=== PATIENT | male | born 1935 | race Caucasian/White ===

== ENCOUNTER → 2017-10-26 06:07 | Outpatient (CLI) | payer MEDICARE, OTHER, SELFPAY ==
--- NOTE | 2017-10-26 10:03 | STRESSREP ---
Stress Test Report Date: 10/26/2017 Procedure: Pharmacologic stress nuclear imaging study Indications: CAD: PCI; CABG; atrial fibrillation Consent: Per the patient Procedure: The patient underwent pharmacologic (Regadenoson) evaluation with a peak heart rate of 84 bpm (60% predicted maximal heart rate) with a peak blood pressure 134/78 mmHg. The baseline ECG demonstrated atrial fibrillation. There was notation of nonspecific ST and T-wave abnormality. The peak pharmacologic ECG demonstrated continued atrial fibrillation with nonspecific ST and T-wave abnormality. There was a rare PVC during recovery. There was no report of chest discomfort during pharmacologic infusion or recovery. The examination was discontinued secondary to completion of protocol. Impression: 1. Pharmacologic (Regadenoson) evaluation 2. Peak pharmacologic ECG with continued atrial fibrillation with nonspecific ST and T-wave abnormality 3. Rare PVC during recovery 4. Nuclear images pending Myocardial perfusion imaging study: Technique: The patient was injected with 10.6 mCi of technetium 99m Cardiolite and subsequently rest SPECT Cardiolite nuclear imaging was obtained in the horizontal long, vertical long, and short axis views. The patient underwent pharmacologic (Regadenoson) evaluation with a peak heart rate of 84 bpm (60% predicted maximal heart rate) with a peak blood pressure 134/78 mmHg. the patient was injected with 36.0 mCi of technetium 99m Cardiolite and subsequently stress SPECT Cardiolite nuclear imaging was obtained in the horizontal long, vertical long, and short axis views. A gated Cardiolite study at peak stress was obtained. Interpretation: Rest and stress SPECT Cardiolite nuclear imaging status post realignment, normalization, and attenuation correction, appears to demonstrate relative uniform tracer uptake and myocardial perfusion appearing within normal limits. There is end systolic thickening and brightening. The gated Cardiolite study demonstrates myocardial thickening and inward wall motion. The reported LVEF is 85%. Impression: 1. Rest and stress SPECT Cardiolite nuclear imaging demonstrate relative uniform tracer uptake and myocardial perfusion appearing within normal limits. 2. The gated Cardiolite study reports an LVEF of 85%. This note was generated with [employer] software. Every effort was made to ensure accuracy, however, computerized cage cashier mistakes may persist.
--- NOTE | 2017-10-26 10:12 | STRESSREP_ITS ---
Stress Test Report Date: 10/26/2017 Procedure: Pharmacologic stress nuclear imaging study Indications: CAD: PCI; CABG; atrial fibrillation Consent: Per the patient Procedure: The patient underwent pharmacologic (Regadenoson) evaluation with a peak heart rate of 84 bpm (60% predicted maximal heart rate) with a peak blood pressure 134 /78 mmHg. The baseline ECG demonstrated atrial fibrillation. There was notation of nonspecific ST and T-wave abnormality. The peak pharmacologic ECG demonstrated continued atrial fibrillation with nonspecific ST and T-wave abnormality. There was a rare PVC during recovery. There was no report of chest discomfort during pharmacologic infusion or recovery. The examination was discontinued secondary to completion of protocol. Impression: 1. Pharmacologic (Regadenoson) evaluation 2. Peak pharmacologic ECG with continued atrial fibrillation with nonspecific ST and T-wave abnormality 3. Rare PVC during recovery 4. Nuclear images pending Myocardial perfusion imaging study: Technique: The patient was injected with 10.6 mCi of technetium 99m Cardiolite and subsequently rest SPECT Cardiolite nuclear imaging was obtained in the horizontal long, vertical long, and short axis views. The patient underwent pharmacologic (Regadenoson) evaluation with a peak heart rate of 84 bpm (60% predicted maximal heart rate) with a peak blood pressure 134/78 mmHg. the patient was injected with 36.0 mCi of technetium 99m Cardiolite and subsequently stress SPECT Cardiolite nuclear imaging was obtained in the horizontal long, vertical long, and short axis views. A gated Cardiolite study at peak stress was obtained. Interpretation: Rest and stress SPECT Cardiolite nuclear imaging status post realignment, normalization, and attenuation correction, appears to demonstrate relative uniform tracer uptake and myocardial perfusion appearing within normal limits. There is end systolic thickening and brightening. The gated Cardiolite study demonstrates myocardial thickening and inward wall motion. The reported LVEF is 85%. Impression: 1. Rest and stress SPECT Cardiolite nuclear imaging demonstrate relative uniform tracer uptake and myocardial perfusion appearing within normal limits. 2. The gated Cardiolite study reports an LVEF of 85%. This note was generated with [employer] software. Every effort was made to ensure accuracy, however, computerized consumer banker mistakes may persist.
== END ==
PROVIDERS: Family Provider Family Medicine; PCP Family Medicine; Visit Provider Family Medicine
DX: I25.10 Atherosclerotic heart disease of native coronary artery without angina pectoris (principal); R94.31 Abnormal electrocardiogram [ECG] [EKG]; I48.91 Unspecified atrial fibrillation
CPT/HCPCS: 78452; 93017; A9500; A4216; J2785

== ENCOUNTER → 2017-11-07 15:12 | Outpatient (CLI) | payer MEDICARE, OTHER, SELFPAY ==
--- NOTE | 2017-11-07 15:18 | RAD_ITS ---
STUDY: X-RAY CHEST REASON FOR EXAM: Male, 82 years old. Cough. Pneumonia. TECHNIQUE: Frontal and lateral views of the chest. COMPARISON: None. FINDINGS: The lungs are clear and expanded. There is no demonstrated pleural abnormality. Sternal cerclage wires and vascular clips are present from a prior sternotomy and coronary artery bypass graft procedure (CABG). Normal mediastinum and tessa. Normal visualized pulmonary arteries. Normal visualized aortic arch and descending thoracic aorta. Normal visualized thoracic spine. Previous left shoulder surgery. There is no demonstrated abnormality of the visualized soft tissue structures of the upper abdomen. RAD/Chest PA and Lateral IMPRESSION: No acute chest disease.. Electronically Signed: Derrick Jorgensen MD at 14:12 EST , Service support ,
== END ==
PROVIDERS: Family Provider Family Medicine; PCP Family Medicine; Visit Provider Family Medicine
DX: R05 Cough (principal)
CPT/HCPCS: 71046

== ENCOUNTER → 2019-04-18 | Outpatient (CLI) | payer MEDICARE, OTHER, SELFPAY | END | disposition home or self-care (01) | LOC: SL 20:08 | PROVIDERS: Family Provider Family Medicine; PCP Family Medicine; Referring Provider Family Medicine; Visit Provider Family Medicine | DX: G47.30 Sleep apnea, unspecified (principal); R06.83 Snoring | CPT/HCPCS: 95811 ==

== ENCOUNTER → 2019-06-13 10:34 | Outpatient (CLI) | payer MEDICARE, OTHER, SELFPAY ==
[2019-05-01 14:39] VITALS: BMI 27.6
--- NOTE | 2019-05-16 21:33 | HP.PCM_ITS ---
History and Physical Date of Admission: 05/17/19 ALLERGIES acetaminophen [From Percocet] acetazolamide hydrocodone [From Vicodin] oxycodone [From Percocet] prednisone Sulfa (Sulfonamide Antibiotics) MEDICATIONS allopurinol ascorbic acid (vitamin C) aspirin brimonidine 0.1 % eye drops carboxymethylcellulose 0.5 %-glycerin 0.9 % eye drops cholecalciferol (vitamin D3) cyanocobalamin (vitamin B-12) dorzolamide 2 %-timolol 0.5 % (PF) eye drops doxycycline hyclate latanoprostene bunod 0.024 % eye drops lisinopril olopatadine 0.2 % eye drops omega-3 360 ye-nyy-ary-fish oil prednisolone acetate propranolol simvastatin tramadol triamcinolone acetonide triamterene warfarin PAST MEDICAL HISTORY Arthritis (Acute) Atrial fibrillation (Acute) Back problem (Acute) Cataracts, bilateral (Acute) Glaucoma (Acute) Gout (Acute) Hearing problem (Acute) Heart disease (Acute) High cholesterol (Acute) History of blood transfusion (Acute) Neuropathy (Acute) Seasonal allergies (Acute) Vision problems (Acute) High blood pressure (Chronic) PAST SURGICAL HISTORY Glaucoma, open angle (Acute) History of colonoscopy (Acute) History of excision of epidermal inclusion cyst (Acute) History of heart artery stent (Acute) History of hemorrhoidectomy (Acute) History of phacoemulsification of cataract of both eyes with intraocular lens implantation (Acute) History of right knee surgery (Acute) History of rotator cuff surgery (Acute) History of tonsillectomy (Acute) History of vasectomy (Acute) Hx of CABG (Acute) Pilonidal cyst (Acute) FAMILY HISTORY Daughter - Depression, Suicide Sister - Depression Mother - Heart disease, Suicide Father - CVA (cerebral vascular accident) SOCIAL HISTORY Smoking Status: Former smoker alcohol intake: current substance use type: does not use HISTORY OF PRESENT ILLNESS 83 year old man presents for evaluation for TBSE. He has concerns about a lesion on his right lateral forehead by the hairline that has increased in size over the last few months and has developed a cutaneous horn component. He has had the lesion removed a couple of times in the past and it has recurred. He states it was biopsied once and it was an actinic keratosis. He also has a concern about a lesion on his left temporal scalp which had increased in size over the last several months and had become more raised in configuration with some crusting. However recently he has noticed the lesion has flattened out as the crusting has seemed to resolve. He denies trauma. He denies fever. He presents at this time for further evaluation and treatment. REVIEW OF SYSTEMS General - Denies fever, fatigue, and weight loss. Eyes - Denies cataracts. Has glaucoma. ENT - Denies nasal congestion and sore throat. Endocrine - Denies excessive thirst and urination. Skin - Denies skin cancer. Has recurrent actinic keratosis right lateral forehead by hairline and a lesion left temporal scalp that had some crusting recently but none at present. Musculoskeletal - Denies joint pain, joint stiffness, weakness of muscles and joints, back pain. Denies arthritis. Neuro - Denies headaches. Cardiovascular - Denies chest pain, fatigue, and shortness of breath with exertion. Psych - Denies anxiety and depression. Respiratory - Denies chronic cough and shortness of breath. Patient is a former smoker. Gastrointestinal - Denies nausea, vomiting, diarrhea, and constipation. Hematologic - Denies abnormal bruising and bleeding. Genitourinary - Denies hematuria and urinary frequency. PHYSICAL EXAMINATION General - Alert and Oriented. HEENT - PERRL. EOMI. Throat is clear. On the right lateral forehead by the hairline is a lesion that measures 5 mm. Has a cutaneous horn component. Has irregular borders. No ulceration. Lesion is nontender.. Has been biopsied in the past and shown to be an actinic keratosis. On his left temporal scalp is a lesion that measures 5 mm. Has regular borders. Slightly pigmented which is uniform. No ulceration. Lesion is nontender. Looks like a benign keratosis. Neck - Supple and nontender. No cervical adenopathy. No suspicious lesions noted. Lungs - Clear to auscultation. Heart - Regular rate and rhythm. Abdomen - Soft and nondistended. Extremities - FROM. No axillary adenopathy. Radial pulses are palpable. No suspicious lesions noted. Neuro - CN II-XII grossly intact. Psych - Normal mood and affect. ASSESSMENT 1. 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 2. 5 mm slightly pigmented lesion left temporal scalp, clinically consistent with a benign keratosis. 3. Former smoker. PLAN Recommend excision of this recurrent cutaneous horn actinic keratosis right lateral forehead by hairline. Will send the lesion to Pathology for analysis to rule out carcinoma. It will be a full thickness excision because it has a cutaneous horn component. If carcinoma is present, then further excision will be necessary with skin graft or skin flap reconstruction. The lesion left temporal scalp clinically looks like a benign keratosis and can be observed at this time. They are going to [place] at the end of May for 9 months. They will be returning in Jan, 2020. He was instructed to have the lesion left temporal scalp checked in [place] if any changes occur for evaluation for excision. Kavon frazier I can re-evaluate the lesion when he returns in January. Surgery for the right lateral forehead by hairline lesion can be done under local anesthesia and IV sedation on an outpatient basis. Patient was informed of the risks and complications of the procedure including alternatives to surgery. These were discussed with the patient personally. Patient voices understanding and wishes to proceed. Some of the risks and complications were included in a form from the [place] [employer]. Will schedule the surgery in early May so I have a chance to monitor the incisions postop for one or two visits prior to leaving for [place] at the end of May.
[2019-05-17 12:10] VITALS: BP 143/81; PULSE 69; RESP 16; TEMP 36.5; O2SAT 99; BMI 26.4
[2019-05-17] MEDS: Lactated Ringers 1,000 ML 100 ML IV (12:42)
--- NOTE | 2019-05-17 14:18 | PCM.PN.BLA ---
Progress Note Patient was scheduled to have a cutaneous horn lesion excised from his right lateral forehead by kevin today. He had an EKG this morning and it showed some anterior ischemia changes. Patient is asymptomatic at this time. We obtained a previous EKG from [place] earlier this year in December. It showed some anterior ischemia changes but not as much. He had seen his Cig[facility] Bander in [place] in December. His office note did not recommend any testing at that time as he appeared stable. He thought the EKG was stable. His last stress test was in October,. His last ECHO was in 2016. The office note also stated some carotid disease based on an ultrasound in 2013. With his history of atrial fibrillation which is being treated with Coumadin and with his history of heart disease and CABG, Anesthesia felt it was prudent to cancel the elective surgery today. The surgery still needs to be done but not urgently. It can wait a couple of months until he is seen and evaluated by his [facility]ig[facility]. Patient is planning on returning to [place] in a month and will followup with his [facility] at that time. He will tell him that he needs surgery to remove this cutaneous horn lesion on his forehead, and then let the [facility] decide if any preop testing needs to be done. At that point the patient will decide if he wants the surgery done in [place] or if he wants to wait until his return to [place] in January or February. I told him that would be ok as long as the lesion does not dramatically increase in size in which case he would need to have it removed in [place]. He voices understanding and is in agreement with the plan.
[2019-05-17 14:26] LABS: Prothrombin Time Fingerstick 15.4 SEC (11.9-14.4)
== END ==
LOC: AC 05-17 15:02 → SDC 10:34
PROVIDERS: Family Provider Family Medicine; PCP Family Medicine; Referring Provider Surgery; Visit Provider Surgery
DX: L57.0 Actinic keratosis (principal); Z53.09 Procedure and treatment not carried out because of other contraindication; L98.9 Disorder of the skin and subcutaneous tissue, unspecified; I48.91 Unspecified atrial fibrillation; I10 Essential (primary) hypertension; E78.00 Pure hypercholesterolemia, unspecified; M10.9 Gout, unspecified; Z79.01 Long term (current) use of anticoagulants; Z79.82 Long term (current) use of aspirin; Z79.899 Other long term (current) drug therapy; Z87.891 Personal history of nicotine dependence; Z95.1 Presence of aortocoronary bypass graft
CPT/HCPCS: 36416; 85610; 93005; J7120; J2405

== ENCOUNTER 2020-04-15 10:22 | Outpatient (RCR) | payer MEDICARE, OTHER, SELFPAY ==
[2020-04-15 09:43] VITALS: BMI 27.1
[2020-04-15 12:36] LABS: Absolute Lymphocyte Count 1.35 X10^3/uL (0.83-4.51); Absolute Neutrophil Count 4.6 X10^3/uL (2.0-7.7); Basophil# 0.04 X10^3/uL; Basophil% 0.6 % (0-1); Eosinophil# 0.26 X10^3/uL; Eosinophils% 3.8 % (0-5); Hematocrit 49.7 % (40-54); Hemoglobin 16.3 g/dL (13.0-16.5); Lymphocyte # 1.35 X10^3/ul (4.0); Lymphocyte % 19.6 % (19-41); Mean Corp Hgb Conc 32.8 g/dL (32-36); Mean Corpuscular Hgb 32.2 pg (27.0-32.0); Mean Corpuscular Volume 98.2 fL (80-94); Mean Platelet Vol. 10.8 fl (6.2-12.0); Monocyte# 0.61 X10^3/uL; Monocyte% 8.8 % (0-10); NRBC Flagged by Analyzer 0 % (0-5); Neutrophil # 4.63 X10^3/uL (2.7-7.7); Neutrophil % 67.1 % (47-70); Platelet Count 104 K/mm3 (150-450); RBC Distribution Width CV 13.8 % (11.6-14.6); RBC Distribution Width SD 49.1 fl (35.1-43.9); Red Blood Count 5.06 M/mm3 (4.6-6.2); White Blood Count 6.9 K/mm3 (4.4-11.0)
[2020-04-15 12:55] LABS: International Normalized Ratio 2.4; Prothrombin Time (Protime)PT. 25.8 SECONDS (11.7-14.9)
[2020-04-15 13:02] LABS: Anion Gap 5 (5-15); BUN 25 mg/dL (7-18); BUN/Creat Ratio 19.7 RATIO (10-20); Chloride 110 mmol/L (98-107); Creatinine, Serum 1.27 mg/dL (0.70-1.30); EST Glomerular Filtration Rate 58 mL/min (>60); Est Glom Filt Rate - Afr Amer 70 mL/min (>60); Glucose 107 mg/dL (74-106); Sodium Level 140 mmol/L (136-145)
== END 2020-04-17 23:59 ==
LOC: BIMLAB 10:22
PROVIDERS: PCP Internal Medicine; Referring Provider Internal Medicine; Visit Provider Internal Medicine
DX: I48.91 Unspecified atrial fibrillation (principal)
CPT/HCPCS: 36415; 80048; 85025; 85610

== ENCOUNTER 2020-05-14 14:12 | Outpatient (RCR) | payer MEDICARE, OTHER, SELFPAY ==
[2020-05-14 15:54] LABS: International Normalized Ratio 1.4; Prothrombin Time (Protime)PT. 16.8 SECONDS (11.7-14.9)
== END 2020-05-18 23:59 ==
LOC: BIMLAB 14:12
PROVIDERS: PCP Internal Medicine; Referring Provider Internal Medicine; Visit Provider Internal Medicine
DX: I48.91 Unspecified atrial fibrillation (principal)
CPT/HCPCS: 36415; 85610

== ENCOUNTER 2020-05-29 10:27 | Outpatient (RCR) | payer MEDICARE, OTHER, SELFPAY ==
[2020-05-29 13:41] LABS: Prothrombin Time (Protime)PT. 22.2 SECONDS (11.7-14.9)
== END 2020-06-17 23:59 ==
LOC: BIMLAB 10:27
PROVIDERS: PCP Internal Medicine; Referring Provider Internal Medicine; Visit Provider Internal Medicine
DX: I48.91 Unspecified atrial fibrillation (principal)
CPT/HCPCS: 36415; 85610

== ENCOUNTER 2021-03-12 11:58 | Outpatient (RCR) | payer MEDICARE, OTHER, SELFPAY ==
[2020-06-03 13:09] VITALS: BMI 27.8
[2021-02-18 16:44] LABS: International Normalized Ratio 1.5; Prothrombin Time (Protime)PT. 17.4 SECONDS (11.7-14.9)
[2021-03-01 12:32] LABS: International Normalized Ratio 2.8; Prothrombin Time (Protime)PT. 28.7 SECONDS (11.7-14.9)
[2021-03-12 15:41] LABS: International Normalized Ratio 3.6; Prothrombin Time (Protime)PT. 35.4 SECONDS (11.7-14.9)
== END 2021-03-17 23:59 ==
LOC: BIMLAB 11:58
PROVIDERS: PCP Internal Medicine; Referring Provider Internal Medicine Cardiovascular Disease; Visit Provider Internal Medicine Cardiovascular Disease
DX: I48.11 Longstanding persistent atrial fibrillation (principal); Z79.01 Long term (current) use of anticoagulants
CPT/HCPCS: 36415; 85610

== ENCOUNTER 2021-04-06 09:11 | Outpatient (RCR) | payer MEDICARE, OTHER, SELFPAY ==
[2020-06-03 13:09] VITALS: BMI 27.8
[2021-03-19 12:27] LABS: International Normalized Ratio 3.3; Prothrombin Time (Protime)PT. 32.7 SECONDS (11.7-14.9)
[2021-04-06 12:46] LABS: International Normalized Ratio 2.5; Prothrombin Time (Protime)PT. 26.4 SECONDS (11.7-14.9)
== END 2021-04-17 23:59 ==
LOC: BIMLAB 09:11
PROVIDERS: PCP Internal Medicine; Referring Provider Internal Medicine Cardiovascular Disease; Visit Provider Internal Medicine Cardiovascular Disease
DX: I48.11 Longstanding persistent atrial fibrillation (principal); Z79.01 Long term (current) use of anticoagulants
CPT/HCPCS: 36415; 85610

== ENCOUNTER 2021-04-20 13:29 | Outpatient (RCR) | payer MEDICARE, OTHER, SELFPAY ==
[2021-04-14 15:35] VITALS: BMI 27.8
[2021-04-20 15:13] LABS: International Normalized Ratio 3.2; Prothrombin Time (Protime)PT. 31.9 SECONDS (11.7-14.9)
== END 2021-05-18 23:59 ==
LOC: BIMLAB 13:29
PROVIDERS: PCP Internal Medicine; Referring Provider Internal Medicine Cardiovascular Disease; Visit Provider Internal Medicine Cardiovascular Disease
DX: I48.11 Longstanding persistent atrial fibrillation (principal); Z79.01 Long term (current) use of anticoagulants
CPT/HCPCS: 36415; 85610

== ENCOUNTER → 2021-05-05 09:11 | Outpatient (CLI) | payer MEDICARE, OTHER, SELFPAY ==
[2021-04-14 15:35] VITALS: BMI 27.8
[2021-05-05 12:43] LABS: International Normalized Ratio 2.5; Prothrombin Time (Protime)PT. 26.5 SECONDS (11.7-14.9)
== END ==
PROVIDERS: Internal Medicine Cardiovascular Disease; PCP Internal Medicine; Visit Provider Internal Medicine
DX: I48.11 Longstanding persistent atrial fibrillation (principal); Z79.01 Long term (current) use of anticoagulants
CPT/HCPCS: 36415; 85610

== ENCOUNTER 2021-05-26 13:50 | Outpatient (RCR) | payer MEDICARE, OTHER, SELFPAY ==
[2021-05-19 00:35] VITALS: BMI 27.8
[2021-05-26 15:41] LABS: International Normalized Ratio 2.1; Prothrombin Time (Protime)PT. 22.7 SECONDS (11.7-14.9)
== END 2021-06-17 23:59 ==
LOC: BIMLAB 13:50
PROVIDERS: PCP Internal Medicine; Referring Provider Internal Medicine Cardiovascular Disease; Visit Provider Internal Medicine Cardiovascular Disease
DX: I48.11 Longstanding persistent atrial fibrillation (principal); Z79.01 Long term (current) use of anticoagulants
CPT/HCPCS: 36415; 85610

== ENCOUNTER 2023-03-04 11:19 | Emergency (ER) | payer MEDICARE, SELFPAY ==
[2023-03-04 11:20] VITALS: BP 117/92; PULSE 89; RESP 16; TEMP 36.7; O2SAT 96; BMI 25.7
--- NOTE | 2023-03-04 12:10 | EX.ED.DYSGE1 ---
HPI <SAMANTHA Avendaño - Last Filed: 03/04/23 17:50> History of Present Illness Chief Complaint: General Illness Narrative Narrative: Patient presenting today due to concerns that his blood glucose level was 163 this morning when he woke up around 9:30 AM. He reports that he felt shaky in his hands which prompted him to check his blood glucose level. He does not have a history of diabetes but does try to keep track of his glucose. He had similar symptoms in January when his glucose was 184. He reports that he felt a little nauseous this morning but does not have any abdominal pain and no longer feels nauseous. He denies any fever, chills, recent illness, chest pain, shortness of breath, stool changes, urinary symptoms. PMH includes CAD, CABG, history of stents, atrial fibrillation on Eliquis. PFSH <SAMANTHA Avendaño - Last Filed: 03/04/23 17:50> [facility] Medical History Arthritis Atherosclerotic heart disease of [place] coronary artery without angina pectoris Back problem Bilateral carotid artery stenosis Cataracts, bilateral Essential hypertension Former smoker Glaucoma Gout Hearing aid worn Hearing problem High triglycerides History of blood transfusion History of skin cancer Hypertrophic toenail MCC current use of anticoagulant Longstanding persistent atrial fibrillation Neuropathy Pure hypercholesterolemia Seasonal allergies Vision problems Home Medications allopurinol 300 mg tablet 150 mg PO DAILY 05/01/19 [History Last Taken Unknown] ascorbic acid (vitamin C) 1,000 mg tablet 1 g PO DAILY 05/01/19 [History Last Taken Unknown] aspirin 81 mg tablet,delayed release (Adult Low Dose Aspirin) 81 mg PO DAILY 05/01/19 [History Last Taken Unknown] cholecalciferol (vitamin D3) 50 mcg (2,000 unit) capsule 2,000 unit PO DAILY 05/01/19 [History Last Taken Unknown] lisinopril 5 mg tablet 5 mg PO DAILY 05/01/19 [History Last Taken 05/17/19 10:00] omega-3 360 iq-qkz-oyw-fish oil 1,200 mg capsule,delayed release (Fish Oil) 1 cap PO DAILY 05/01/19 [History Last Taken Unknown] triamcinolone acetonide 0.1 % topical cream 1 applic topical DAILY 05/01/19 [History Last Taken Unknown] cyanocobalamin (vitamin B-12) 1,000 mcg/mL injection solution 1,000 mcg subcut QMONTH 04/02/20 [History Last Taken Unknown] doxycycline monohydrate 100 mg capsule (Monodox) 100 mg PO DAILY 04/02/20 [History Last Taken Unknown] brimonidine 0.1 % eye drops (Alphagan P) 2 drp ophthalmic (eye) BID 04/15/20 [History Last Taken Unknown] latanoprostene bunod 0.024 % eye drops (Vyzulta) 1 drp ophthalmic (eye) QHS 04/15/20 [History Last Taken Unknown] carboxymethylcellulose 0.5 %-glycerin 0.9 % eye drops (Refresh Optive) 1 drp ophthalmic (eye) BID-QID PRN 06/03/20 [History Last Taken Unknown] dorzolamide 22.3 mg-timolol 6.8 mg/mL eye drops 1 drp ophthalmic (eye) QAM AND QPM 04/14/21 [History Last Taken Unknown] optive tears EACH EYE 02/22/23 [History Last Taken Unknown] apixaban 5 mg tablet (Eliquis) 5 mg PO BID #180 tabs 02/23/23 [Rx Last Taken Unknown] propranolol 60 mg capsule,24 hr,extended release 60 mg PO DAILY #90 caps 02/23/23 [Rx Last Taken Unknown] simvastatin 10 mg tablet 10 mg PO QHS #90 tabs 02/23/23 [Rx Last Taken Unknown] triamterene 37.5 mg-hydrochlorothiazide 25 mg tablet 0.5 tab PO DAILY #90 tabs 02/23/23 [Rx Last Taken Unknown] Allergy/AdvReac Type Severity Reaction Status Date / Time acetaminophen [From Percocet] Allergy Intermediate ALLERGY Verified 03/04/23 11:23 acetazolamide Allergy Intermediate ALLERGY Verified 03/04/23 11:23 hydrocodone [From Vicodin] Allergy Intermediate ALLERGY Verified 03/04/23 11:23 oxycodone [From Percocet] Allergy Intermediate ALLERGY Verified 03/04/23 11:23 Sulfa (Sulfonamide Allergy Intermediate ALLERGY Verified 03/04/23 11:23 Antibiotics) Family History Daughter Depression Suicide Sister Depression Mother Heart disease Suicide Father CVA (cerebral vascular accident) Surgical History Glaucoma, open angle History of colonoscopy History of coronary artery bypass surgery (~1982) History of excision of epidermal inclusion cyst History of heart artery stent (~2003) History of hemorrhoidectomy History of phacoemulsification of cataract of both eyes with intraocular lens implantation History of right knee surgery History of rotator cuff surgery History of tonsillectomy History of vasectomy Pilonidal cyst Social History Smoking Status: Former smoker alcohol intake: current alcohol intake frequency: a few times a week substance use type: does not use what type of physical activity do you participate in: none and additional details: limeted additional social history: DOES USE ASPIRIN DOES NOT USE IBUPROFEN ROS <SAMANTHA Avendaño - Last Filed: 03/04/23 17:50> ROS ED Constitutional Constitutional ED: Denies chills or fever(s) Cardiovascular Cardiovascular: Denies chest pain Respiratory/Chest Respiratory/Chest: Denies cough or dyspnea Gastrointestinal Gastrointestinal: Reports nausea; Denies abdominal pain, constipation, diarrhea, hematochezia, melena or vomiting Genitourinary Genitourinary ED: Denies dysuria, hematuria or urinary urgency Musculoskeletal Musculoskeletal: Denies arthralgias or myalgias Integumentary Denies rash Neurologic Neurologic: Denies confusion, paresthesias or weakness EXAM <SAMANTHA Avendaño - Last Filed: 03/04/23 17:50> Physical Exam Const Vital Signs: 03/04/23 11:20 03/04/23 12:30 03/04/23 15:07 Temperature 98.1 F Temperature Source Temporal Pulse Rate 89 63 Respiratory Rate 16 14 Respiratory Effort Normal Non-Labored Respiratory Pattern Normal Blood Pressure 117/92 H 118/68 Blood Pressure Mean 100 84 Pulse Ox 96 98 Oxygen Delivery Method Room Air Room Air Positive well nourished, well developed and no apparent distress General Appearance ED: well developed HEENT Reports normocephalic and head/scalp atraumatic Mouth ED: Yes moist mucous membranes normal Eyes PERRL and EOMs intact bilaterally Neck full ROM and supple Chest Wall inspection of chest normal Resp normal respiratory effort and clear to auscultation bilaterally Cardio regular rate and regular rhythm GI soft to palpation, non-tender, non-distended and no masses Back/Spine normal ROM and normal to inspection Extremity normal to inspection and full ROM Neuro oriented x3, CN's II-XII intact bilaterally, moves all extremities, no focal motor deficits and no sensory deficits noted Sensorium / Orientation: awake and alert Psych mental status grossly normal and thought process normal Skin no rashes or lesions noted and no wounds <Dr. Tj Mcguire DO - Last Filed: 03/04/23 16:41> Physical Exam Const Vital Signs: 03/04/23 11:20 03/04/23 12:30 03/04/23 15:07 Temperature 98.1 F Temperature Source Temporal Pulse Rate 89 63 Respiratory Rate 16 14 Respiratory Effort Normal Non-Labored Respiratory Pattern Normal Blood Pressure 117/92 H 118/68 Blood Pressure Mean 100 84 Pulse Ox 96 98 Oxygen Delivery Method Room Air Room Air [facility] <SAMANTHA Avendaño - Last Filed: 03/04/23 17:50> [facility] Narrative Medical decision making narrative: Patient presenting today due to concerns that he was hyperglycemic this morning when he checked his sugar fasting and it was 163. He felt shaky and also slightly nauseous and decided to come in. Basic labs obtained to assess glucose and rule out leukocytosis, anemia, electrolyte abnormality. Given his extensive heart history, troponin and EKG will be obtained to rule out ACS. Patient does have leukocytosis, I will attempt to find a source from that by obtaining a chest x-ray, UA, and CT of the abdomen pelvis given he was nauseous. UA is not for infection, chest x-ray negative for any acute findings, CT shows BPH, renal cysts but otherwise unremarkable. patient is aware that he has an enlarged prostate. He is well-appearing and in no acute distress, he is asymptomatic here. I have discussed his lab findings with him, encouraged him to follow-up with his PCP and given him return instructions. He will be discharged home in stable condition and is comfortable with plan. Lab Data Labs: Laboratory Results - last 24 hr 03/04/23 03/04/23 03/04/23 12:25 12:25 14:10 WBC 17.5 H RBC 4.31 L Hgb 13.6 Hct 41.0 MCV 95.1 H MCH 31.6 MCHC 33.2 RDW Std Deviation 50.9 H RDW Coeff of Stefany 14.6 Plt Count 88 L MPV 10.8 Immature Gran % (Auto) 0.900 Neut % (Auto) 92.3 H Lymph % (Auto) 1.5 L [place] % (Auto) 5.1 Eos % (Auto) 0.1 Baso % (Auto) 0.1 Absolute Neuts (auto) 16.1 H Absolute Lymphs (auto) 0.27 L Nucleated RBC % 0 Platelet Estimate SLT DEC Sodium 139 Potassium 4.0 Chloride 109 H Carbon Dioxide 22.0 Anion Gap 8 BUN 31 H Creatinine 1.46 H Estim Creat Clear Calc 31.59 Est GFR (MDRD) Af Amer 59 L Est GFR (MDRD) Non-Af 49 L BUN/Creatinine Ratio 21.2 H Glucose 152 H Calcium 9.9 Troponin I High Sens 9 Urine Color Yellow Urine Clarity Clear Urine pH 5.0 Ur Specific [place] 1.015 Urine Protein 15 H Urine Glucose (UA) Normal Urine Ketones Negative Urine Occult Blood Negative Urine Nitrite Negative Urine Bilirubin Negative Urine Urobilinogen Normal Ur Leukocyte Esterase Negative Urine RBC 0 SEEN Urine WBC 0 SEEN Ur Squamous Epith Cells 0 SEEN Urine Bacteria 0 SEEN Urine Mucus 0 SEEN 03/04/23 15:00 WBC RBC Hgb Hct MCV MCH MCHC RDW Std Deviation RDW Coeff of Stefany Plt Count MPV Immature Gran % (Auto) Neut % (Auto) Lymph % (Auto) [place] % (Auto) Eos % (Auto) Baso % (Auto) Absolute Neuts (auto) Absolute Lymphs (auto) Nucleated RBC % Platelet Estimate Sodium Potassium Chloride Carbon Dioxide Anion Gap BUN Creatinine Estim Creat Clear Calc Est GFR (MDRD) Af Amer Est GFR (MDRD) Non-Af BUN/Creatinine Ratio Glucose Calcium Troponin I High Sens 10 Urine Color Urine Clarity Urine pH Ur Specific [place] Urine Protein Urine Glucose (UA) Urine Ketones Urine Occult Blood Urine Nitrite Urine Bilirubin Urine Urobilinogen Ur Leukocyte Esterase Urine RBC Urine WBC Ur Squamous Epith Cells Urine Bacteria Urine Mucus Radiography X-Ray: Read by ED Physician and Read by Radiologist Diagnostic Testing: Clinical Impression(s) from Imaging Studies Chest X-Ray 03/04/23 12:35 IMPRESSION: Cardiomegaly. Electronically Signed: Magaly Pate MD at 13:20 EDT , Abdomen/Pelvis CT 03/04/23 13:12 IMPRESSION: 1. No bowel obstruction or acute findings in the abdomen and pelvis. 2. 2.7 x 1.7 cm left lower renal intrasinus cyst is simple cyst. No follow-up is necessary. 3. Enlarged prostate gland is at least BPH. Electronically Signed: Gary Strong MD at 14:26 EDT , EKG Initial EKG: Comments: 72 bpm, atrial fibrillation, no ST elevation reviewed and interpreted by attending ED physician <Dr. Tj Mcguire, DO - Last Filed: 03/04/23 16:41> [facility] Lab Data Attestation: I reviewed the patient's lab results. Lab results narrative: EKG with leukocytosis, no anemia, no thrombocytopenia BMP without significant [place] abnormalities, no anion gap, baseline CKD, Troponin is negative, no evidence of myocardial ischemia urinalysis without evidence of infection Delta troponin negative Labs: Laboratory Results - last 24 hr 03/04/23 03/04/23 03/04/23 12:25 12:25 14:10 WBC 17.5 H RBC 4.31 L Hgb 13.6 Hct 41.0 MCV 95.1 H MCH 31.6 MCHC 33.2 RDW Std Deviation 50.9 H RDW Coeff of Stefany 14.6 Plt Count 88 L MPV 10.8 Immature Gran % (Auto) 0.900 Neut % (Auto) 92.3 H Lymph % (Auto) 1.5 L [place] % (Auto) 5.1 Eos % (Auto) 0.1 Baso % (Auto) 0.1 Absolute Neuts (auto) 16.1 H Absolute Lymphs (auto) 0.27 L Nucleated RBC % 0 Platelet Estimate SLT DEC Sodium 139 Potassium 4.0 Chloride 109 H Carbon Dioxide 22.0 Anion Gap 8 BUN 31 H Creatinine 1.46 H Estim Creat Clear Calc 31.59 Est GFR (MDRD) Af Amer 59 L Est GFR (MDRD) Non-Af 49 L BUN/Creatinine Ratio 21.2 H Glucose 152 H Calcium 9.9 Troponin I High Sens 9 Urine Color Yellow Urine Clarity Clear Urine pH 5.0 Ur Specific [place] 1.015 Urine Protein 15 H Urine Glucose (UA) Normal Urine Ketones Negative Urine Occult Blood Negative Urine Nitrite Negative Urine Bilirubin Negative Urine Urobilinogen Normal Ur Leukocyte Esterase Negative Urine RBC 0 SEEN Urine WBC 0 SEEN Ur Squamous Epith Cells 0 SEEN Urine Bacteria 0 SEEN Urine Mucus 0 SEEN 03/04/23 15:00 WBC RBC Hgb Hct MCV MCH MCHC RDW Std Deviation RDW Coeff of Stefany Plt Count MPV Immature Gran % (Auto) Neut % (Auto) Lymph % (Auto) [place] % (Auto) Eos % (Auto) Baso % (Auto) Absolute Neuts (auto) Absolute Lymphs (auto) Nucleated RBC % Platelet Estimate Sodium Potassium Chloride Carbon Dioxide Anion Gap BUN Creatinine Estim Creat Clear Calc Est GFR (MDRD) Af Amer Est GFR (MDRD) Non-Af BUN/Creatinine Ratio Glucose Calcium Troponin I High Sens 10 Urine Color Urine Clarity Urine pH Ur Specific [place] Urine Protein Urine Glucose (UA) Urine Ketones Urine Occult Blood Urine Nitrite Urine Bilirubin Urine Urobilinogen Ur Leukocyte Esterase Urine RBC Urine WBC Ur Squamous Epith Cells Urine Bacteria Urine Mucus Radiography Diagnostic Testing: Clinical Impression(s) from Imaging Studies Chest X-Ray 03/04/23 12:35 IMPRESSION: Cardiomegaly. Electronically Signed: Magaly Pate MD at 13:20 EDT , Abdomen/Pelvis CT 03/04/23 13:12 IMPRESSION: 1. No bowel obstruction or acute findings in the abdomen and pelvis. 2. 2.7 x 1.7 cm left lower renal intrasinus cyst is simple cyst. No follow-up is necessary. 3. Enlarged prostate gland is at least BPH. Electronically Signed: Gary Strong MD at 14:26 EDT , Chest x-ray was read interpreted person by myself. Shows no evidence of pneumonia or pneumothorax. Treatment and Re-Evaluation :: ED attending note: I evaluated the patient in conjunction with the REINIER. I agree with his/her statements and above findings. I have personally performed a face to face assessment of the patient and have reviewed the REINIER Note. I performed a substantive portion of the visit including all aspects of the following. I personally saw the patient performed chart review, physical exam, reviewed labs, imaging (if obtained), and formulated a treatment and management plan. Exam: Nursing triage notes reviewed, Vital signs reviewed Constitutional: please see mdm HENT: MMM Eyes: Pupils equal round and reactive to light, Extraocular muscles intact Neck: No stridor, no JVD, full neck ROM Lungs: Clear to auscultation, No wheezing or rales. No increased work of breathing, no conversational dyspnea, no accessory muscle use, no nasal flaring. No respiratory distress noted Heart: Regular rate and rhythm, No murmurs, No rubs and No gallops, 2+ distal pulses (radial, femoral, posterior tibial) in all extremities Abdomen: Soft, there is no tenderness, rigidity, rebound or guarding, no obvious peritoneal signs, no palpable pulsatile abdominal masses, no auscultated abdominal bruit : No CVAT Extremities: No edema Neuro: Alert and oriented x3, neuro exam at baseline, cranial nerves II through XII are intact. No pain with extraocular muscle movement. There is negative test of skew. Normal speech. 5 of 5 strength in upper and lower extremities in flexion extension. Intact sensation to light touch in upper and lower extremity dermatomes. No truncal or extremity ataxia. No dysdiadochokinesia. Normal gait. 2+ reflexes. No meningeal signs. Negative Babinski. NIH of 0 Skin: No rash or lesions noted MDM/plan: Chief Complaint: Shakiness, nausea External records reviewed: A1c is 5.1 Patient was hemodynamically stable, afebrile, nontoxic-appearing. There is no focal neurologic deficits. No source of infection. I considered the following differential diagnosis: Intracranial abnormality including CVA, focal seizure, anemia, electrolyte abnormalities, arrhythmia, myocardial ischemia Labs ordered including urine, troponin, imaging was ordered including chest x-ray and CT scan abdomen pelvis. Initial labs showed leukocytosis concerning for STEMI inflammation. We will continue look for source of infection including urine, intra-abdominal or intrathoracic. We will dispo based results of studies, initial troponin, EKG and delta troponin Factors affecting care: On [facility] Social determinants of health: Elderly History obtained from others: The patient's family Shared decision making: I will have a discussion with the patient and or visitors regarding risk/benefits of further testing or admission. They will be made aware of of the risk/benefits inherent in this decision they will be given the opportunity to voice understanding. Consults: none Discharge Plan Triage Chief Complaint: General Illness ED Midlevel Provider: Cecily Elizabeth ED Provider: Tj Mcguire Dx/Rx/DC Orders Clinical Impression: Hyperglycemia, Shakiness, Nausea Instructions: High Blood Sugar (Hyperglycemia) Prescriptions: No Action allopurinol 300 mg tablet 150 mg PO DAILY aspirin [Adult Low Dose Aspirin] 81 mg tablet,delayed release (DR/EC) 81 mg PO DAILY omega 9-mfc-crl-fish oil [Fish Oil] 360-1,200 mg capsule,delayed release(DR/EC) 1 cap PO DAILY lisinopril 5 mg tablet 5 mg PO DAILY triamcinolone acetonide 0.1 % cream 1 applic TOPICAL DAILY ascorbic acid (vitamin C) 1,000 mg tablet 1 g PO DAILY cholecalciferol (vitamin D3) 2,000 unit capsule 2,000 unit PO DAILY Alphagan P 0.1 % drops 2 drp OPHTHALMIC BID Rx Instructions: LEFT EYE doxycycline monohydrate [Monodox] 100 mg capsule 100 mg PO DAILY cyanocobalamin (vitamin B-12) 1,000 mcg/mL solution 1,000 mcg SC QMONTH Vyzulta 0.024 % drops 1 drp OPHTHALMIC QHS Rx Instructions: BOTHS EYES AT BED TIME Refresh Optive 0.5-0.9 % drops 1 drp OPHTHALMIC BID-QID PRN dorzolamide-timolol 22.3-6.8 mg/mL drops 1 drp ophthalmic (eye) QAM AND QPM optive tears EACH EYE Eliquis 5 mg tablet 5 mg PO BID Qty: 180 1RF propranolol 60 mg capsule,extended release 24 hr 60 mg PO DAILY Qty: 90 1RF simvastatin 10 mg tablet 10 mg PO QHS Qty: 90 1RF triamterene-hydrochlorothiazid 37.5-25 mg tablet 0.5 tab PO DAILY Qty: 90 1RF Rx Instructions: 1/2 daily Primary Care Provider: Moon Wells Referrals: Moon Wells MD [Primary Care Provider] - 3-5 Days Activity Restrictions/Additional Instructions: Please follow-up with your PCP and return for any worsening of symptoms. Disposition Disposition: Home, Self Care Discharge Date/Time: 03/04/23 16:21
--- NOTE | 2023-03-04 12:11 | EKG12_ITS ---
Test Reason : WEAKNESS Blood Pressure : / mmHG Vent. Rate : 072 BPM Atrial Rate : 000 BPM P-R Int : 000 ms QRS Dur : 074 ms QT Int : 360 ms P-R-T Axes : 000 062 147 degrees QTc Int : [address] & T wave abnormality, consider anterior ischemia Abnormal ECG Confirmed by CINTHIA GUSTAFSON, SUNITHA ([id number]), field map editor NISSA SIMPSON ([id number]) on 03/06/2023 10:59:54 A M Referred By: Confirmed By:DARRIUS VICENTE MD
--- NOTE | 2023-03-04 12:35 | RAD_ITS ---
INDICATION: other EXAMINATION/TECHNIQUE: X-RAY - XR Chest 1 View COMPARISON: November 07, 2017 FINDINGS: LINES/DEVICES: None. LUNGS: No consolidation, edema or effusion. No pneumothorax. MEDIASTINUM AND CARDIOVASCULAR STRUCTURES: There is cardiomegaly. There are sternotomy wires in place. There are surgical clips projecting over the cardiac silhouette. Central airways and mediastinal contour are unremarkable. BONES AND SOFT TISSUES: Unremarkable. RAD/Chest 1 View (Portable) IMPRESSION: Cardiomegaly. Electronically Signed: Magaly Pate MD at 13:20 EDT ,
[2023-03-04 12:38] LABS: Absolute Lymphocyte Count 0.27 X10^3/uL (0.83-4.51); Absolute Neutrophil Count 16.1 X10^3/uL (2.0-7.7); Basophil# 0.02 X10^3/uL; Basophil% 0.1 % (0-1); Differential Indicated SCAN CRITERIA MET; Eosinophil# 0.01 X10^3/uL; Eosinophils% 0.1 % (0-5); Hemoglobin 13.6 g/dL (13.0-16.5); Lymphocyte # 0.27 X10^3/ul (0.83-4.51); Lymphocyte % 1.5 % (19-41); Mean Corp Hgb Conc 33.2 g/dL (32-36); Mean Corpuscular Hgb 31.6 pg (27.0-32.0); Mean Corpuscular Volume 95.1 fL (80-94); Mean Platelet Vol. 10.8 fl (6.2-12.0); Monocyte% 5.1 % (0-10); NRBC Flagged by Analyzer 0 % (0-5); Neutrophil # 16.14 X10^3/uL (2.7-7.7); Neutrophil % 92.3 % (47-70); POSITIVE COUNT YES; POSITIVE DIFFERENTIAL YES; Platelet Count 88 K/mm3 (150-450); RBC Distribution Width CV 14.6 % (11.6-14.6); RBC Distribution Width SD 50.9 fl (35.1-43.9); Red Blood Count 4.31 M/mm3 (4.6-6.2); White Blood Count 17.5 K/mm3 (4.4-11.0)
[2023-03-04 12:58] LABS: Anion Gap 8 (5-15); BUN 31 mg/dL (7-18); BUN/Creat Ratio 21.2 RATIO (10-20); Calcium,Total 9.9 mg/dL (8.5-10.1); Chloride 109 mmol/L (98-107); Creatinine, Serum 1.46 mg/dL (0.70-1.30); EST Glomerular Filtration Rate 49 mL/min (>60); Est Glom Filt Rate - Afr Amer 59 mL/min (>60); Estimated Creatinine Clearance 31.59 ml/min; Glucose 152 mg/dL (74-106); Sodium Level 139 mmol/L (136-145); Troponin-I HS 9 pg/mL (3.0-78.0)
[2023-03-04 13:09] LABS: Platelet Estimate SLT DEC (ADEQ)
--- NOTE | 2023-03-04 13:12 | CT_ITS ---
EXAM: CT ABDOMEN AND PELVIS WITH INTRAVENOUS CONTRAST CLINICAL INDICATION: Nausea and vomiting. Rule out obstruction. TECHNIQUE: Helically acquired images were obtained of the abdomen and pelvis with intravenous contrast. This CT exam was performed using one or more of the following dose reduction techniques: automated exposure control, adjustment of the mA and/or kV according to patient size, and/or use of iterative reconstruction technique. CONTRAST: IV 100mL Isovue-370 RADIATION DOSE: CTDIvol = 15.39 mGy, DLP = 915.47 mGy-cm COMPARISON: No relevant prior studies available. FINDINGS: LOWER THORAX: Cardiomegaly. Radiopaque clips in the heart from prior CABG procedure. Normal pericardium. Lung bases are clear. ABDOMEN: LIVER: Unremarkable. Homogeneous. No focal mass. GALLBLADDER AND BILE DUCTS: Unremarkable. No calcified gallstones. No gallbladder distention or wall edema. No intra- or extrahepatic biliary ductal dilation. PANCREAS: Unremarkable. No focal cystic or solid mass. SPLEEN: Unremarkable. Normal size without focal cystic or solid mass. ADRENALS: Unremarkable. No nodules. KIDNEYS AND URETERS: 2.7 x 1.7 cm left lower intrasinus cyst with CT number of 1.32 Hounsfield units. This is simple cyst. This is below the left renal pelvis. There is a small calcification in the caudal wall of the left lower intrasinus cyst. No stones or hydronephrosis in the left kidney. 1.2 cm left lower renal pole cortical cyst. Normal right kidney. Minimal stranding of the fat in both perirenal spaces. STOMACH AND BOWEL: Unremarkable. No stomach or bowel distention. No focal inflammatory change. PELVIS: APPENDIX: Normal. BLADDER: Unremarkable. REPRODUCTIVE: Enlarged prostate gland is at least BPH. No mass. ABDOMEN and PELVIS: INTRAPERITONEAL SPACE: Unremarkable. No ascites or other fluid collection. No free air. BONES/JOINTS: Grade 1 degenerative anterolisthesis of L4 on L5. Mild degenerative retrolisthesis of L2 on L3 and L3 on L4. Moderately pronounced stenosis of the left L4-L5 intervertebral neural foramen and moderate stenosis of the left L3-L4 intervertebral neural foramen. 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 Degenerative osteoarthrosis of both hip joints. No suspicious lytic or blastic abnormality. SOFT TISSUES: Unremarkable. No discrete abdominal or pelvic wall hernia. VASCULATURE: Calcified plaques along the abdominal aorta and iliac arteries. Abdominal aorta is non-dilated. LYMPH NODES: Unremarkable. No enlarged lymph nodes. CT/Abdomen/Pelvis W IV Cont ONLY IMPRESSION: 1. No bowel obstruction or acute findings in the abdomen and pelvis. 2. 2.7 x 1.7 cm left lower renal intrasinus cyst is simple cyst. No follow-up is necessary. 3. Enlarged prostate gland is at least BPH. Electronically Signed: Gary Strong MD at 14:26 EDT ,
[2023-03-04 14:19] LABS: Bacteria 0 SEEN /hpf (None Seen); Mucous, Urine 0 SEEN /hpf (<or=2+); Red Blood Cells-Urine 0 SEEN /hpf (0-5); Squamous Epithelial Cells - UA 0 SEEN /hpf (0-5); White Blood Cells 0 SEEN /hpf (0-5)
[2023-03-04 14:22] LABS: Color, Urine Yellow (Yellow); Glucose, Dipstick Normal (Normal); Ketone-Dipstick Negative (Negative); Leukocyte Esterase-Dipstick Negative /ul (Negative); Nitrite-Dipstick Negative (Negative); Occult Blood-Urine Negative /ul (Negative); Protein-Dipstick 15 mg/dl (Negative); Specific Gravity, Urine 1.015 (1.002-1.030); Urine Bilirubin Dipstick Negative (Negative); Urine Clarity Clear (Clear); Urine Urobilinogen Normal (Normal)
[2023-03-04 15:07] VITALS: BP 118/68; PULSE 63; RESP 14; O2SAT 98
[2023-03-04 15:26] LABS: Troponin-I HS 10 pg/mL (3.0-78.0)
== END 2023-03-04 16:21 | disposition home or self-care (01) ==
PROVIDERS: Physician Assistant; Emergency Provider Emergency Medicine; PCP Internal Medicine; Visit Provider Emergency Medicine
DX: R73.9 Hyperglycemia, unspecified (principal); I48.91 Unspecified atrial fibrillation; R11.0 Nausea; I25.10 Atherosclerotic heart disease of native coronary artery without angina pectoris; Z95.1 Presence of aortocoronary bypass graft; Z95.5 Presence of coronary angioplasty implant and graft; Z79.01 Long term (current) use of anticoagulants; Z87.891 Personal history of nicotine dependence
CPT/HCPCS: 71045; 74177; 80048; 81001; 84484; 85025; 93005; 99283; Q9967; A4216

== ENCOUNTER → 2023-03-22 | Outpatient (CLI) | payer MEDICARE, SELFPAY ==
[2023-03-22 12:58] LABS: Absolute Neutrophil Count 5.1 X10^3/uL (2.0-7.7); Basophil# 0.06 X10^3/uL; Basophil% 0.8 % (0-1); Eosinophil# 0.37 X10^3/uL; Hematocrit 43.4 % (40-54); Hemoglobin 13.5 g/dL (13.0-16.5); Lymphocyte % 16.2 % (19-41); Mean Corp Hgb Conc 31.1 g/dL (32-36); Mean Corpuscular Volume 99.5 fL (80-94); Mean Platelet Vol. 10.9 fl (6.2-12.0); Monocyte# 0.67 X10^3/uL; NRBC Flagged by Analyzer 0 % (0-5); Neutrophil % 68.7 % (47-70); Platelet Count 152 K/mm3 (150-450); RBC Distribution Width CV 14.5 % (11.6-14.6); RBC Distribution Width SD 52.7 fl (35.1-43.9); Red Blood Count 4.36 M/mm3 (4.6-6.2); White Blood Count 7.4 K/mm3 (4.4-11.0)
== END | disposition home or self-care (01) ==
PROVIDERS: PCP Internal Medicine; Referring Provider Internal Medicine; Visit Provider Internal Medicine
DX: R60.0 Localized edema (principal)
CPT/HCPCS: 36415; 85025

== ENCOUNTER → 2023-03-24 | Outpatient (CLI) | payer MEDICARE, SELFPAY ==
--- NOTE | 2023-03-24 12:48 | VDLE_ITS ---
Reason For Study: Rt Leg Swelling RIGHT LEFT GSV is normal. CFV is compressible, spontaneous, phasic, CFV is compressible, spontaneous, phasic, competent, and demonstrates normal competent and demonstrates normal augmentation. augmentation. FV is compressible, spontaneous, phasic, competent and demonstrates normal augmentation. POP V is compressible, spontaneous, phasic, competent and demonstrates normal augmentation. T/P Trunk is compressible. PTV is compressible. RT PerV is compressible. Procedure This is a venous duplex using B-mode, color flow and spectral Doppler. Exam performed in department. The exam was diagnostic. A preliminary report was called and/or faxed to Dr. Lester Office. VL/Venous Duplex US, Unilateral Interpretation Summary There is no evidence of right lower extremity deep vein thrombosis. Right great saphenous vein appears patent and compressible segmentally. Normal flow patterns left common f emoral vein Ordering Physician: Jada Lester Referring Physician: Jada Lester Performed By: Moo Stuart RVT
== END | disposition home or self-care (01) ==
PROVIDERS: PCP Internal Medicine; Referring Provider Internal Medicine; Visit Provider Internal Medicine
DX: R60.0 Localized edema (principal)
CPT/HCPCS: 93971

== ENCOUNTER → 2024-03-22 | Outpatient (CLI) | payer MEDICARE, SELFPAY ==
[2024-03-22 09:35] LABS: Absolute Lymphocyte Count 1.26 X10^3/uL (0.83-4.51); Absolute Neutrophil Count 5.5 X10^3/uL (2.0-7.7); Basophil# 0.06 X10^3/uL; Basophil% 0.8 % (0-1); Eosinophil# 0.35 X10^3/uL; Eosinophils% 4.4 % (0-5); Hematocrit 46.2 % (40-54); Lymphocyte # 1.26 X10^3/ul (0.83-4.51); Mean Corp Hgb Conc 32.5 g/dL (32-36); Mean Corpuscular Hgb 31.2 pg (27.0-32.0); Mean Platelet Vol. 11.3 fl (6.2-12.0); Monocyte# 0.68 X10^3/uL; Monocyte% 8.6 % (0-10); NRBC Flagged by Analyzer 0 % (0-5); Neutrophil # 5.51 X10^3/uL (2.7-7.7); Neutrophil % 69.9 % (47-70); Platelet Count 109 K/mm3 (150-450); RBC Distribution Width CV 13.3 % (11.6-14.6); RBC Distribution Width SD 47.5 fl (35.1-43.9); Red Blood Count 4.81 M/mm3 (4.6-6.2); White Blood Count 7.9 K/mm3 (4.4-11.0)
[2024-03-22 10:06] LABS: ALB/GLOB Ratio 1.1 RATIO (0.9-2.4); AST(SGOT) 17 U/L (15-37); Alanine Aminotransfer ALT/SGPT 32 U/L (16-61); Albumin, Serum 3.7 g/dL (3.2-5.0); Alkaline Phosphatase 84 U/L (45-117); Anion Gap 5 (5-15); BUN 44 mg/dL (7-18); BUN/Creat Ratio 28.6 RATIO (10-20); Calcium,Total 10.2 mg/dL (8.5-10.1); Chloride 113 mmol/L (98-107); Cholesterol 108 mg/dL (200); Creatinine, Serum 1.54 mg/dL (0.70-1.30); EST Glomerular Filtration Rate 46 mL/min (>60); Est Glom Filt Rate - Afr Amer 55 mL/min (>60); Globulin 3.3 g/dL (2.2-4.2); Glucose 104 mg/dL (74-106); High Density Lipoprotein 59 mg/dL; Potassium 4.8 mmol/L (3.5-5.1); Sodium Level 142 mmol/L (136-145); Triglycerides 65 mg/dL; Very Low Density Lipoprotein 13 mg/dL (5-40)
== END | disposition home or self-care (01) ==
PROVIDERS: PCP Internal Medicine; Referring Provider Internal Medicine; Visit Provider Internal Medicine
DX: R97.20 Elevated prostate specific antigen [PSA] (principal); I10 Essential (primary) hypertension
CPT/HCPCS: 36415; 80053; 80061; 84153; 85025

== ENCOUNTER → 2025-03-05 | Outpatient (CLI) | payer MEDICARE, SELFPAY ==
--- NOTE | 2025-03-05 09:56 | RAD_ITS ---
PROCEDURE: CERV SPINE 2 OR 3 VIEWS 03/05/2025 REASON FOR EXAM: CERVICAL RADICULOPATHY TECHNIQUE: CERV SPINE 2 OR 3 VIEWS COMPARISON: None. FINDINGS: Vertebrae: Vertebral body heights appear intact. Multilevel facet joint soft tissues are grossly unremarkable. disc spaces: Marked multilevel degenerative loss of disc height with large endplate osteophytes at several levels including C5-6. Alignment: There is grossly normal cervical spine lordosis soft tissues: No prevertebral soft tissue swelling. Other: The odontoid process is intact. The lateral masses of C1 and C2 are normally aligned. RAD/Cerv Spine 2 or 3 Views IMPRESSION: Degenerative changes is detail no acute process. Disclaimer: Reading Location: [facility]
--- NOTE | 2025-03-05 09:56 | RAD_ITS ---
PROCEDURE: LUMBAR SPINE 2 OR 3 VIEWS 03/05/2025 REASON FOR EXAM: LUMBAR RADICULOPATHY TECHNIQUE: LUMBAR SPINE 2 OR 3 VIEWS COMPARISON: None. FINDINGS: Vertebrae: Vertebral body heights are substantially intact. 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 Large endplate osteophytes (spondylosis). Alignment: AP alignment does not appear substantially abnormal. There is lumbar lordosis. Mild anterolisthesis of L4 on L5, grade 1. Mild retrolisthesis of L 2 on L3, grade 1 Other: Densely calcified normal caliber aorta. RAD/Lumbar Spine 2 or 3 Views IMPRESSION: Multilevel degenerative changes as detailed above. No acute findings. Reading [facility]: [facility]
--- OUTSIDE RECORDS SUMMARY | 2025-03-05 20:12 | XMS RPT_ITS | CCD ---
Author Organization [facility] Care Team Providers Care Mortar Maker Name Role Phone Dr. Moon Wells Primary Care Provider [phone] Dr. Moon Wells Referring Provider [phone] Mitch GARZA, KAMINI Sue Attending Provider [phone] Oleghe, Efewongbe Referring Unavailable Oleghe, Efewongbe Primary Care Unavailable Chip, Carlyn Attending Unavailable Oleghe, Efewongbe Referring Unavailable Oleghe, Efewongbe Primary Care Unavailable Chip, Carlyn Attending Unavailable Oleghe, Efewongbe Primary Care Unavailable Oleghe, Efewongbe Attending Unavailable Oleghe, Efewongbe Referring Unavailable Oleghe, Efewongbe Primary Care Unavailable Oleghe, Efewongbe Attending Unavailable Oleghe, Efewongbe Referring Unavailable Oleghe, Efewongbe Primary Care Unavailable Oleghe, Efewongbe Attending Unavailable Oleghe, Efewongbe Referring Unavailable Oleghe Dr. Moon GUSTASFON Primary Care Provider Dr. Moon Wells MD Attending Provider [phone] Dr. Moon Wells MD Referring Provider [phone] Allergies Allergy Classification Reported Allergen(s) Allergy Type Date of Onset Reaction(s) Facility (2 sources) Acetaminophen Drug Allergy 3 ALLERGY [facility] (2 sources) acetaZOLAMIDE Drug Allergy 3 ALLERGY [facility] (2 sources) HYDROcodone Drug Allergy 3 ALLERGY [facility] (2 sources) oxyCODONE Drug Allergy 3 ALLERGY [facility] (2 sources) Sulfonamides (Antibiotic) Allergy to substance 3 ALLERGY [facility] (1 source) Acetaminophen Drug Allergy 4 [facility] (1 source) acetaZOLAMIDE Drug Allergy 4 [facility] (1 source) HYDROcodone Drug Allergy 4 [facility] (1 source) oxyCODONE Drug Allergy 4 [facility] (1 source) Sulfonamides (Antibiotic) Drug allergy (disorder) 4 [facility] Medications Current Medications Medication Drug Class(es) Dates Sig (Normalized) Sig (Original) allopurinol 300 mg oral tablet (3 sources) Xanthine Oxidase Inhibitor Start: 05-01-2019 End: 04-28-2023 Allopurinol 300 mg tablet Active 150 mg PO DAILY 60 April 28, 2023 12:51pm Start: 05-01-2019 take 150 mg by mouth once manish y Allopurinol Active 150 MG PO DAILY May 01, 2019 12:00am apixaban 5 mg oral tablet (6 sources) Factor Xa Inhibitor Start: 02-22-2023 End: 03-03-2025 take 1 tablet by mouth twice daily Apixaban (Eliquis) 5 mg tablet Active 5 mg PO TWICE A DAY 180 March 03, 2025 1:28pm ascorbic acid 1000 mg oral tablet (2 sources) Vitamin C Start: 05-01-2019 take 1 g by mouth once daily Ascorbic Acid (Vitamin C) 1,000 mg tablet Active 1 g PO DAILY May 01, 2019 12:00am Start: 05-01-2019 take 1 g by mouth once daily A scorbic Acid (Vitamin C) Active 1 GM PO DAILY May 01, 2019 12:00am aspirin 81 mg delayed release oral tablet (2 sources) Platelet Aggregation Inhibitor, Nonsteroidal Anti-inflammatory Drug Start: 05-01-2019 Aspirin (Adult Low Dose Aspirin) 81 mg tablet,delayed release (DR/EC) Active 81 mg PO DAILY May 01, 2019 12:00am brimonidine tartrate 1 mg/ml ophthalmic solution (4 sources) alpha-Adrenergic Agonist Start: 05-01-2019 End: 04-15-2020 take 0.1 drop(s) into the eye(s) twice daily Brimonidine (Alphagan P) 0.1 % drops Active 2 NMA OPHTHALMIC TWICE A DAY April 15, 2020 9:36am LEFT EYE Start: 05-01-2019 End: 04-15-2020 take 0.1 drop(s) into the eye(s) twice daily Brimonidine (Alphagan P) 0.1 % drops Active 2 DRP OPHTHALMIC TWICE A DAY April 15, 2020 9:36am LEFT EYE carboxymethylcellulose sodium 5 mg/ml / glycerin 9 mg/ml ophthalmic solution (4 sources) Non-Standardized Chemical Allergen Start: 06-03-2020 Carboxymethylcellulose-Glyce rn (Refresh Optive) 0.5-0.9 % drops Active 1 NMA OPHTHALMIC 2 to 4 times per day as needed June 03, 2020 12:00am Start: 06-03-2020 Carboxymethylc ellulose-Glycern (Refresh Optive) 0.5-0.9 % drops Active 1 DRP OPHTHALMIC 2 to 4 times per day June 03, 2020 12:00am Start: 05-01-2019 End: 04-02-2020 Carboxymethylcellulose-Glyce rn (Refresh Optive) 0.5-0.9 % drops Discontinued 2 NMA OPHTHALMIC 4 to 8 times per day May 01, 2019 12:00am April 02, 2020 7:53am Start: 05-01-2019 End: 04-02-2020 Carboxymethylcellulose-Glyce rn (Refresh Optive) 0.5-0.9 % drops Discontinued 2 DRP OPHTHALMIC 4 to 8 times per day May 01, 2019 12:00am April 02, 2020 7:53am cholecalciferol 0.05 mg oral capsule (2 sources) Vitamin D Start: 05-01-2019 take 1 capsule by mouth once daily Cholecalciferol (Vitamin D3) 2,000 unit capsule Active 2000 U PO DAILY May 01, 2019 12:00am diclofenac sodium 0.01 mg/mg topical gel (1 source) Nonsteroidal Anti-inflammatory Drug Start: 04-12-2024 apply 2 g topically once daily Diclofenac Sodium 1 % gel Active 2 g TOPICAL AT BEDTIME April 12, 2024 12:00am apply to knee nightly dorzolamide 20 mg/ml / timolol 5 mg/ml ophthalmic solution (4 sources) Carbonic Anhydrase Inhibitor, beta-Adrenergic Misty Start: 04-14-2021 Dorzolamide-Timolol 22.3-6.8 mg/mL drops Active 1 NMA OPHTHALMIC every day in the morning and in the evening April 14, 2021 12:00am Start: 04-14-2021 Dorzolamide-Ti molol Active 1 DRP OPHTHALMIC every day in the morning and in the evening April 14, 2021 12:00am Start: 05-01-2019 End: 04-02-2020 Dorzolamide-Timolol (Pf) 2-0 .5 % drops Discontinued 2 NMA OPHTHALMIC TWICE A DAY May 01, 2019 12:00am April 02, 2020 7:53am Start: 05-01-2019 End: 04-02-2020 Dorzolamide-Timolol (Pf) Dis continued 2 DRP OPHTHALMIC TWICE A DAY May 01, 2019 12:00am April 02, 2020 7:53am folic acid 0.8 mg oral tablet (1 source) Start: 02-29-2024 take 0.8 mg by mouth once daily Folic Acid 800 mcg tablet Active 0.8 mg PO DAILY February 29, 2024 12:00am hydroCHLOROthiazide 25 mg / triamterene 37.5 mg oral tablet (11 sources) Potassium-spari ng Diuretic, Thiazide Diuretic Start: 05-01-2019 End: 03-09-2023 Triamterene-Hy drochlorothiaz id 37.5-25 mg tablet Active 1 {tbl} PO DAILY March 09, 2023 2:27pm Start: 05-01-2019 End: 02-23-2023 take 0.5 tablet by mouth once daily Triamterene-Hydrochlorothiazid Discontin ued 0.5 TABLET PO DAILY February 22, 2023 4:12pm February 23, 2023 10:11am 1/2 daily latanoprost 0.05 mg/ml ophthalmic solution (1 source) Prostaglandin Analog Start: 05-02-[address] 0.005 % drops Active 1 NMA OPHTHALMIC EVERY EVENING May 02, 2023 12:00am lisinopril 5 mg oral tablet (4 sources) Angiotensin Converting Enzyme Inhibitor Start: 05-01-2019 End: 03-04-2024 take 1 tablet by mouth once daily Lisinopril 5 mg tablet Active 5 mg PO DAILY March 04, 2024 9:03am Energy 1-Keq-Wgr-Fish Oil (Fish Oil) 360-1,200 mg capsule,delayed release(DR/EC) (2 sources) Start: 05-01-2019 Energy 3-Zus-Rru-Fish Oil (Fish Oil) 360-1,200 mg capsule,delayed release(DR/EC) Active 1 NMA PO DAILY May 01, 2019 12:00am Start: 05-01-2019 take 360-1200 mg by mouth once daily Energy 8-Dnl-Rda-Fish Oil (Fish Oil) 360-1,200 mg capsule,delayed release(DR/EC) Active 1 CAP PO DAILY May 01, 2019 12:00am optive tears (4 sources) Start: 02-22-2023 optive tears A ctive EACH EYE February 22, 2023 12:00am Start: 04-02-2020 End: 06-03-2020 optive tears Discontinued 0 OPHTHALMIC .COMPLEX April 02, 2020 12:00am June 03, 2020 1:10pm 4 drops PRN ophthalmic (eye); propranolol hydrochloride 60 mg oral tablet (8 sources) beta-Adrenergic Misty Start: 03-09-2023 End: 03-04-2024 take 1 tablet by mouth once daily Propranolol 60 mg tablet Active 60 mg PO daily March 04, 2024 9:06am Start: 05-01-2019 End: 03-09-2023 take 1 capsule by mouth once daily Propranolol 60 mg capsule,extended release 24 hr Discontinued 60 mg PO DAILY February 23, 2023 10:11am March 09, 2023 2:30pm simvastatin 10 mg oral tablet (8 sources) HMG-CoA Reductase Inhibitor Start: 02-29-2024 End: 03-04-2024 take 1 tablet by mouth at bedtime Simvastatin 10 mg tablet Active 10 mg PO AT BEDTIME March 04, 2024 9:02am Start: 05-01-2019 End: 05-02-2023 take 1 tablet by mouth at bedtime Simvastatin 10 mg tablet Discontinued 10 mg PO AT BEDTIME February 23, 2023 10:11am May 02, 2023 11:30am triamcinolone acetonide 1 mg/ml topical cream (3 sources) Corticosteroid Start: 05-02-2023 Triamcinolone Acetonide 0.1 % cream Active 1 NMA TOPICAL DAILY as needed May 02, 2023 11:29am Start: 05-01-2019 End: 05-02-2023 Triamcinolone Acetonide 0.1 % cream Discontinued 1 NMA TOPICAL DAILY May 01, 2019 12:00am May 02, 2023 11:30am Start: 05-01-2019 Triamcinolone Acetonide Active 1 APPLIC TOPICAL DAILY May 01, 2019 12:00am vitamin b12 1 mg/ml injectable solution (6 sources) Vitamin B12 Start: 02-29-2024 Cyanocobalamin (Vitamin B-12) 1,000 mcg/mL solution Active 1000 ug SC EVERY WEEK February 29, 2024 1:49pm Start: 04-02-2020 End: 02-29-2024 Cyanocobalamin (Vitamin B-12 ) 1,000 mcg/mL solution Discontinued 1000 ug SC EVERY MONTH May 19, 2023 1:27pm February 29, 2024 1:50pm Start: 04-02-2020 Cyanocobalamin (Vitamin B-12) Active 1000 MCG SC EVERY MONTH April 02, 2020 12:00am Start: 05-01-2019 End: 04-02-2020 take 1 capsule by mouth once daily Cyanocobalamin (Vitamin B-12) 1,000 mcg capsule Discontinued 1000 ug PO DAILY May 01, 2019 12:00am April 02, 2020 7:42am Completed/Discontinued Medications Medication Drug Class(es) Dates Sig (Normalized) Sig (Original) cephalexin 500 mg oral capsule (1 source) Cephalosporin Antibacterial Start: 04-12-2024 End: 04-22-2024 take 1 capsule by mouth every twelve hours Cephalexin 500 mg capsule Discontinued 500 mg PO Q12H 07 07April 12, 2024 12:00am April 21, 2024 12:00am April 22, 2024 12:03am doxycycline hyclate 100 mg oral capsule (7 sources) Tetracycline-class Drug Start: 04-12-2024 End: 04-22-2024 take 1 capsule by mouth twice daily Doxycycline Hyclate 100 mg capsule Discontinued 100 mg PO TWICE A DAY 07 07April 12, 2024 12:00am April 21, 2024 12:00am April 22, 2024 12:03am Start: 04-02-2020 End: 03-04-2024 take 1 capsule by mouth once daily Doxycycline Monohydrate (Monodox) 100 mg capsule Active 100 mg PO DAILY March 04, 2024 9:03am Start: 05-01-2019 End: 04-02-2020 take 1 capsule by mouth once daily Doxycycline Hyclate 100 mg capsule Discontinued 100 mg PO DAILY May 01, 2019 12:00am April 02, 2020 7:38am latanoprostene bunod 0.24 mg/ml ophthalmic solution (4 sources) Start: 04-15-2020 End: 05-02-2023 take 0.024 drop(s) into the eye(s) at bedtime Latanoprostene Bunod (Vyzulta) 0.024 % drops Discontinued 1 NMA OPHTHALMIC AT BEDTIME April 15, 2020 9:37am May 02, 2023 11:30am BOTHS EYES AT BED TIME Start: 04-15-2020 take 0.024 drop(s) i nto the eye(s) at bedtime Latanoprostene Bunod (Vyzulta) 0.024 % drops Active 1 DRP OPHTHALMIC AT BEDTIME April 15, 2020 9:37am BOTHS EYES AT BED TIME Start: 04-02-2020 End: 04-15-2020 take 0.024 drop(s) into the eye(s) once daily Latanoprostene Bunod (Vyzulta) 0.024 % drops Discontinued 1 NMA OPHTHALMIC DAILY April 02, 2020 12:00am April 15, 2020 9:37am left eye Start: 04-02-2020 End: 04-15-2020 take 0.024 drop(s) into the eye(s) once daily Latanoprostene Bunod (Vyzulta) 0.024 % drops Discontinued 1 DRP OPHTHALMIC DAILY April 02, 2020 12:00am April 15, 2020 9:37am left eye terbinafine 250 mg oral tablet (2 sources) Allylamine Antifungal Start: 03-22-2023 End: 02-29-2024 take 1 tablet by mouth once daily Terbinafine Hcl 250 mg tablet Discontinued 250 mg PO DAILY May 01, 2023 10:28am February 29, 2024 1:48pm traMADol hydrochloride 50 mg oral tablet (2 sources) Opioid Agonist Start: 05-01-2019 End: 04-02-2020 Tramadol 50 mg tablet Discontinued 50 mg PO .PRN as needed for Pain May 01, 2019 12:00am April 02, 2020 7:53am warfarin sodium 2.5 mg oral tablet (4 sources) Vitamin K Antagonist Start: 05-01-2019 End: 02-22-2023 take 1 tablet by mouth once Warfarin 2.5 mg tablet Discontinued 2.5 mg PO every Monday, , , MonMay 01, 2019 12:00am February 22, 2023 3:33pm Please contact the information source for Protocol details. Start: 05-01-2019 End: 02-22-2023 take 1 tablet by mouth once Warfarin 5 mg tablet Disco ntinued 5 mg PO every Monday, Monday, and Wednesday May 01, 2019 12:00am February 22, 2023 3:33pm Please contact the information source for Protocol details. Problems Problem Classification Problem Date Documented Da te Episodic/Chronic Cardiac dysrhythmias (3 sources) Longstanding persistent atrial fibrillation; Translations: [Longstanding persistent atrial fibrillation] 06-02-2020 Chronic Chronic kidney disease (1 source) Chronic kidney disease stage 3; Translations: [Stage 3 chronic kidney disease] 03-29-2024 Chronic Coronary atherosclerosis and other heart disease (4 sources) Coronary atherosclerosis; Translations: [Atherosclerotic heart disease of [place] coronary artery without angina pectoris] Onset: 02-29-2024 06-03-2020 Chronic Comment on above: History of CABG. His tory of percutaneous intervention. Diabetes mellitus without complication (2 sources) Hyperglycemia; Translations: [Hyperglycemia, unspecified] 03-04-2023 Episodic Disorders of lipid metabolism (4 sources) Pure hypercholesterolemi a; Translations: [Pure hypercholesterolemi a, unspecified] Onset: 02-29-2024 06-02-2020 Chronic Essential hypertension (4 sources) Essential hypertension; Translations: [Essential (primary) hypertension] Onset: 02-29-2024 06-02-2020 Chronic Gout and other crystal arthropathies (1 source) Gout; Translations: [Gout, unspecified] 03-04-2024 Chronic Hyperplasia of prostate (2 sources) Benign prostatic hyperplasia without lower urinary tract symptoms; Translations: [Benign prostatic hyperplasia] Onset: 03-29-2024 03-29-2024 Chronic Nausea and vomiting (2 sources) Nausea; Translations: [Nausea] 03-04-2023 Episodic Neoplasms of unspecified nature or uncertain behavior (2 sources) Neoplasm of skin of scalp; Translations: [Neoplasm of unspecified behavior of bone, soft tissue, and skin] 05-16-2019 Episodic Comment on above: 5 mm slightly pigmen magdalena lesion left temporal scalp, clinically consistent with a benign lesion Occlusion or stenosis of precerebral arteries (2 sources) Bilateral stenosis of carotid arteries; Translations: [Occlusion and stenosis of bilateral carotid arteries] 06-02-2020 Chronic Other aftercare (2 sources) Long-term current use of anticoagulant; Translations: [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 anticoagulants] 06-02-2020 Episodic Other circulatory disease (1 source) Disorder of arteries and arterioles, unspecified; Translations: [Disorder of arteries and arterioles, unspecified] Onset: 02-29-2024 Chronic Other circulatory disease (1 source) Disorder of carotid artery; Translations: [Disorder of arteries and arterioles, unspecified] 02-06-2024 Chronic Other nervous system disorders (2 sources) Tremor; Translations: [Tremor, unspecified] 03-04-2023 Episodic Other non-traumatic joint disorders (3 sources) Pain in right knee; Translations: [Right knee pain] 02-23-2023 Episodic Other non-traumatic joint disorders (1 source) Pain in right shoulder; Translations: [Right shoulder pain] 03-05-2025 Episodic Other nutritional; endocrine; and metabolic disorders (1 source) Hypercalcemia; Translations: [Hypercalcemia] 03-22-2024 Chronic Other screening for suspected conditions (not mental disorders or infectious disease) (2 sources) Elevated prostate specific antigen [PSA]; Translations: [Raised prostate specific antigen] Onset: 04-01-2024 03-17-2024 Episodic Other skin disorders (2 sources) Hypertrophy of toenail; Translations: [Onychogryphosis] 02-22-2023 Episodic Other skin disorders (2 sources) Actinic keratosis; Translations: [Actinic keratosis] 05-16-2019 Episodic Comment on above: 5 mm recurrent cutan eous horn actinic keratosis right lateral forehead by hairline Other skin disorders (1 source) Onychogryphosis; Translations: [Other specified diseases of nail] 02-22-2023 Episodic Other skin disorders (1 source) Disorder of soft tissue of lower limb; Translations: [Follicular cyst of the skin and subcutaneous tissue, unspecified] 04-12-2024 Episodic Screening and history of mental health and substance abuse codes (2 sources) Ex-smoker; Translations: [Personal history of nicotine dependence] 06-02-2020 Episodic Spondylosis; intervertebral disc disorders; other back problems (2 sources) Lumbar radiculopathy; Translations: [Radiculopathy, lumbar region] 03-05-2025 Episodic Unclassified (1 source) Permanent atrial fibrillation; Translations: [Permanent atrial fibrillation] Onset: 02-29-2024 Unclassified (1 source) M54.12 - Radiculopathy, cervical region,M54.16 - Radiculopathy, lumbar region,M25.511 - Pain in right shoulder Results Test Name Value Interpretation Reference Range Facility Internal Medicine Office Vis iton 03-29-2024 Internal Medicine Office Visit [place] [place] [address] [place] [address] OFFICE VISIT Date of Service: 03/29/24 MR#: [id number] Acct: [id number] Name: JCMATHEUSVANNA LOPEZ Sr. Rep #: [id number] : 1935 Provider: Dr. Moon hutchison MD Age/Sex: 88/M Location: [facility] Status: Signed Intake Vital Signs 03/04/24 08:41 03/29/24 09:59 Height 5 ft 5 in 5 ft 5 in Weight: 161 lb 158 lb 4 oz BMI 26.8 26.3 BP 124/82 H 120/64 Blood Pressure Location Lt brachial Lt brachial Position Sitting Sitting Respiration 17 16 Pulse 76 65 Pulse Source Monitor Monitor Temp 97.7 F L 97.5 F L Temp Source Temporal Temporal Pulse Oximetry (%) 98 97 Oxygen Delivery Method room air room air Intake Visit Reasons: discuss labs Chief Complaint: discuss labs Enterprise Resource Analyst Required: No Accompanied by: Is patient in pain?: No Allergies acetaminophen (From Percocet) Allergy (Intermediate, Verified 03/29/24 09:57) ALLERGY acetazolamide Allergy (Intermediate, Verified 03/29/24 09:57) ALLERGY hydrocodone (From Vicodin) Allergy (Intermediate, Verified 03/29/24 09:57) ALLERGY oxycodone (From Percocet) Allergy (Intermediate, Verified 03/29/24 09:57) ALLERGY Sulfa (Sulfonamide Antibiotics) Allergy (Intermediate, Verified 03/29/24 09:57) ALLERGY Medications ???Medication ???Instructions ???Recorded ???Confirmed ???Type ascorbic acid (vitamin C) 1,000 mg 1 g PO DAILY 05/01/19 03/29/24 History tablet aspirin 81 mg tablet,delayed 81 mg PO DAILY 05/01/19 03/29/24 History release (Adult Low Dose Aspirin) cholecalciferol (vitamin D3) 50 2,000 unit PO DAILY 05/01/19 03/29/24 History mcg (2,000 unit) capsule omega-3 360 tx-kce-bgo-fish oil 1 cap PO DAILY 05/01/19 03/29/24 History 1,200 mg capsule,delayed release (Fish Oil) brimonidine 0.1 % eye drops 2 drp ophthalmic (eye) BID 04/15/20 03/29/24 History (Alphagan P) carboxymethylcellulose 0.5 1 drp ophthalmic (eye) BID-QID PRN 06/03/20 03/29/24 History %-glycerin 0.9 % eye drops (Refresh Optive) dorzolamide 22.3 mg-timolol 6.8 1 drp ophthalmic (eye) QAM AND QPM 04/14/21 03/29/24 History mg/mL eye drops optive tears EACH EYE 02/22/23 03/29/24 History triamterene 37.5 1 tab PO DAILY #90 tabs 03/09/23 03/29/24 Rx mg-hydrochlorothiazide 25 mg tablet allopurinol 300 mg tablet 150 mg (1/2 x 300 mg) PO DAILY #60 04/28/23 03/29/24 Rx tabs latanoprost 0.005 % eye drops 1 drp ophthalmic (eye) QPM 05/02/23 03/29/24 History triamcinolone acetonide 0.1 % 1 applic topical DAILY PRN 05/02/23 03/29/24 History topical cream apixaban 5 mg tablet (Eliquis) 5 mg PO BID #180 tabs 02/29/24 03/29/24 Rx cyanocobalamin (vitamin B-12) 1,000 mcg subcut QWEEK 02/29/24 03/29/24 History 1,000 mcg/mL injection solution folic acid 800 mcg tablet 0.8 mg PO DAILY 02/29/24 03/29/24 History doxycycline monohydrate 100 mg 100 mg PO DAILY #90 caps 03/04/24 03/29/24 Rx capsule (Monodox) lisinopril 5 mg tablet 5 mg PO DAILY #90 tabs 03/04/24 03/29/24 Rx propranolol 60 mg tablet 60 mg PO QDAY #90 tabs 03/04/24 03/29/24 Rx simvastatin 10 mg tablet 10 mg PO QHS #90 tabs 03/04/24 03/29/24 Rx Have you fallen in the past year?: No PFSH Medical History (Updated 03/29/24 @ 12:[address] 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 Hearing aid worn High triglycerides History of skin cancer Neoplasm of skin of scalp Former smoker Actinic keratosis Vision problems Neuropathy Hearing problem Gout Glaucoma Cataracts, bilateral History of blood transfusion Back problem Arthritis Seasonal allergies Surgical History History of coronary artery bypass surgery ( 1982) History of hemorrhoidectomy Glaucoma, open angle History of colonoscopy History of excision of epidermal inclusion cyst History of vasectomy History of tonsillectomy History of right knee surgery Pilonidal cyst History of rotator cuff surgery History of phacoemulsification of cataract of both eyes with intraocular lens implantation History of heart artery stent ( 2003) Family History Daughter Depression Suicide Mother Heart disease Suicide Father CVA (cerebral vascular accident) Social History (Reviewed 03/29/24 @ 09:56 (more content not included)... Normal [facility] CBC W/Diff, Automatedon 07-0 Absolute Lymph 1.26 X10 3/uL Normal 0.83-4.51 [facility] Comment on above: Performed By: #### L [id number], L500.4050, L500.4100, L100.0100 #### [facility] [address] [place], [address] Absolute Neut 5.5 X10 3/uL Normal 2.0-7.7 [facility] Comment on above: Performed By: #### L [id number], L500.4050, L500.4100, L100.0100 #### [facility] [address] [place], [address] Basophils/100 WBC (Bld) 0.8 % Normal 0-1 [facility] Comment on above: Performed By: #### L [id number], L500.4050, L500.4100, L100.0100 #### [facility] [address] [place], [address] Eosinophils/100 WBC (Bld) 4.4 % Normal 0-5 [facility] Comment on above: Performed By: #### L [id number], L500.4050, L500.4100, L100.0100 #### [facility] [address] [place], [address] Erythrocyte distribution width (RBC) [Ratio] 13.3 % Normal 11.6-14.6 [facility] Comment on above: Performed By: #### L [id number], L500.4050, L500.4100, L100.0100 #### [facility] [address] [place], [address] Hematocrit (Bld) [Volume fraction] 46.2 % Normal 40-54 [facility] Comment on above: Performed By: #### L [id number], L500.4050, L500.4100, L100.0100 #### [facility] [address] [place], [address] Hemoglobin (Bld) [Mass/Vol] 15.0 g/dL Normal 13.0-16.5 [facility] Comment on above: Performed By: #### L [id number], L500.4050, L500.4100, L100.0100 #### [facility] [address] [place], [address] IG% 0.300 Normal 0.0-0.9 [facility] Comment on above: Result Comment: IG% - Immature Granulocytes (promyelocytes, myelocytes and metamyelocytes) > 1% indicates that a LEFT SHIFT is Present. Performed By: #### L [id number], L500.4050, L500.4100, L100.0100 #### [facility] [address] [place], [address] Lymphocytes/100 WBC (Bld) 16.0 % Low 19-41 [facility] Comment on above: Performed By: #### L [id number], L500.4050, L500.4100, L100.0100 #### [facility] [address] [place], [address] MCH (RBC) [Entitic mass] 31.2 pg Normal 27.0-32.0 [facility] Comment on above: Performed By: #### L [id number], L500.4050, L500.4100, L100.0100 #### [facility] [address] [place], [address] MCHC (RBC) [Mass/Vol] 32.5 g/dL Normal 32-36 [facility] Comment on above: Performed By: #### L [id number], L500.4050, L500.4100, L100.0100 #### [facility] [address] [place], [address] MCV (RBC) [Entitic vol] 96.0 fL High 80-94 [facility] Comment on above: Performed By: #### L [id number], [id number], L500.4100, L100.0100 #### [facility] [address] [place], [address] Monocytes/100 WBC (Bld) 8.6 % Normal 0-10 [facility] Comment on above: Performed By: #### L [id number], L500.4050, L500.4100, L100.0100 #### [facility] [address] [place], [address] Neutrophils/100 WBC (Bld) 69.9 % Normal 47-70 [facility] Comment on above: Performed By: #### L 501.9940, L500.4050, L500.4100, L100.0100 #### [facility] [address] [place], [address] Nucleated RBC (Bld) [#/Vol] 0 10*3/uL Normal 0-5 [facility] Comment on above: Performed By: #### L 501.9940, L500.4050, L500.4100, L100.0100 #### [facility] [address] [place], [address] Platelet mean volume (Bld) [Entitic vol] 11.3 fL Normal 6.2-12.0 [facility] Comment on above: Performed By: #### L 501.9940, L500.4050, L500.4100, L100.0100 #### [facility] [address] [place], [address] Platelets (Bld) [#/Vol] 109 10*3/uL Low 150-450 [facility] Comment on above: Performed By: #### L 501.9940, L500.4050, L500.4100, L100.0100 #### [facility] [address] [place], [address] RBC (Bld) [#/Vol] 4.81 10*6/uL Normal 4.6-6.2 [facility] Comment on above: Performed By: #### L 501.9940, L500.4050, L500.4100, L100.0100 #### [facility] [address] [place], [address] RDW SD 47.5 fl High 35.1-43.9 [facility] Comment on above: Performed By: #### L 501.9940, L500.4050, L500.4100, L100.0100 #### [facility] [address] [place], [address] WBC (Bld) [#/Vol] 7.9 10*3/uL Normal 4.4-11.0 [facility] Comment on above: Performed By: #### L 501.9940, L500.4050, L500.4100, L100.0100 #### [facility] [address] [place], [address] Comprehensive Metabolic [facility] 03-22-2024 Albumin [Mass/Vol] 3.7 g/dL Normal 3.2-5.0 [facility] Comment on above: Performed By: #### L 501.9940, L500.4050, L500.4100, L100.0100 #### [facility] [address] [place], [address] Albumin/Globulin [Mass ratio] 1.1 {ratio} Normal 0.9-2.4 [facility] Comment on above: Performed By: #### L 501.9940, L500.4050, L500.4100, L100.0100 #### [facility] [address] [place], [address] ALK P 84 U/L Normal 45-117 [facility] Comment on above: Performed By: #### L 501.9940, L500.4050, L500.4100, L100.0100 #### [facility] [address], [address] ALT [Catalytic activity/Vol] 32 U/L Normal 16-61 [facility] Comment on above: Performed By: #### L 501.9940, L500.4050, L500.4100, L100.0100 #### [facility] [address] [place], [address] AST [Catalytic activity/Vol] 17 U/L Normal 15-37 [facility] Comment on above: Performed By: #### L 501.9940, L500.4050, L500.4100, L100.0100 #### [facility] [address] [place], [address] Bilirubin [Mass/Vol] 0.80 mg/dL Normal 0.20-1.00 [facility] Comment on above: Result Comment: For patients on eltrombopag therapy, use of Dimension [place] TBIL is not recommended. Performed By: #### L 501.9940, L500.4050, L500.4100, L100.0100 #### [facility] [address] [place], [address] BUN/CRE 28.6 RATIO High 10-20 [facility] Comment on above: Performed By: #### L 501.9940, L500.4050, L500.4100, L100.0100 #### [facility] [address] [place], [address] CA,Total 10.2 mg/dL High 8.5-10.1 [facility] Comment on above: Performed By: #### L 501.9940, L500.4050, L500.4100, L100.0100 #### [facility] [address] [place], [address] Chloride [Moles/Vol] 113 mmol/L High 98-107 [facility] Comment on above: Performed By: #### L 501.9940, L500.4050, L500.4100, L100.0100 #### [facility] [address] [place], [address] CO2 [Moles/Vol] 24.0 mmol/L Normal 21.0-32.0 [facility] Comment on above: Performed By: #### L 501.9940, L500.4050, L500.4100, L100.0100 #### [facility] [address] [place], [address] Creatinine [Mass/Vol] 1.54 mg/dL High 0.70-1.30 [facility] Comment on above: Result Comment: The validity of the calculated GFR GFRAA in patients over 70 years has not been determined. Clinical correlation is essential. Performed By: #### L 501.9940, L500.4050, L500.4100, L100.0100 #### [facility] [address] [place], [address] EST GFR - AA 55 mL/min Low >60 [facility] Comment on above: Result Comment: Afri can [place] Citizen GFR Calc Performed By: #### L 501.9940, L500.4050, L500.4100, L100.0100 #### [facility] [address] [place], [address] GAP 5 Normal 5-15 [facility] Comment on above: Performed By: #### L 501.9940, L500.4050, L500.4100, L100.0100 #### [facility] [address] [place], [address] GFR/1.73 sq M.predicted among non-blacks MDRD (S/P/Bld) [Vol rate/Area] 46 mL/min/{1.73_m2} Low >60 [facility] Comment on above: Result Comment: Non- GFR Calc Performed By: #### L 501.9940, L500.4050, L500.4100, L100.0100 #### [facility] [address] [place], [address] Globulin (S) [Mass/Vol] 3.3 g/dL Normal 2.2-4.2 [facility] Comment on above: Performed By: #### L 501.9940, L500.4050, L500.4100, L100.0100 #### [facility] [address] [place], [address] Glucose [Mass/Vol] 104 mg/dL Normal 74-106 [facility] Comment on above: Result Comment: Fast ing Glucose result from 100 to 125 mg/dL suggests IMPAIRED HOMEOSTASIS per A.D.A. criteria. Performed By: #### L 501.9940, L500.4050, L500.4100, L100.0100 #### [facility] [address] [place], [address] Potassium [Moles/Vol] 4.8 mmol/L Normal 3.5-5.1 [facility] Comment on above: Performed By: #### L 501.9940, L500.4050, L500.4100, L100.0100 #### [facility] [address] [place], [address] Sodium [Moles/Vol] 142 mmol/L Normal 136-145 [facility] Comment on above: Performed By: #### L 501.9940, L500.4050, L500.4100, L100.0100 #### [facility] [address] [place], [address] T PROT 7.0 g/dL Normal 6.4-8.2 [facility] Comment on above: Performed By: #### L 501.9940, L500.4050, L500.4100, L100.0100 #### [facility] [address] [place], [address] Urea nitrogen [Mass/Vol] 44 mg/dL High 7-18 [facility] Comment on above: Performed By: #### L 501.9940, L500.4050, L500.4100, L100.0100 #### [facility] [address] [place], [address] Lipid Profileon 03-22-2024 Cholesterol [Mass/Vol] 108 mg/dL Normal 200 [facility] Comment on above: Result Comment: <200 mg/dL Desirable 200-240 mg/dL Borderline >240 mg/dL High Risk Performed By: #### L 501.9940, L500.4050, L500.4100, L100.0100 #### [facility] [address] [place], [address] Cholesterol in HDL [Mass/Vol] 59 mg/dL Normal [facility] Comment on above: Result Comment: The drugs N-Acetylcysteine and Metamizole may falsely depress this assay. Reference Range HDL <40 mg/dL Low HDL Cholesterol HDL >or= 60 mg/dL High HDL Cholesterol Performed By: #### L 501.9940, L500.4050, L500.4100, L100.0100 #### [facility] [address] [place], [address] Cholesterol in LDL [Mass/Vol] 36 mg/dL Normal 0-130 [facility] Comment on above: Performed By: #### L 501.9940, L500.4050, L500.4100, L100.0100 #### [facility] [address] [place], [address] Cholesterol in VLDL [Mass/Vol] 13 mg/dL Normal 5-40 [facility] Comment on above: Performed By: #### L 501.9940, L500.4050, L500.4100, L100.0100 #### [facility] [address] [place], [address] Triglyceride [Mass/Vol] 65 mg/dL Normal [facility] Comment on above: Result Comment: The drugs N-Acetylcysteine and Metamizole may falsely depress this assay. Serum Triglycerides Reference Interval Normal <150 mg/dL Borderline high 150 - 199 mg/dL High 200 - 499 mg/dL Very High > or = 500 mg/dL Performed By: #### L 501.9940, L500.4050, L500.4100, L100.0100 #### [facility] [address] [place], [address] PSA,Total- Diagnosticon 07-0 PSA, DIAGNOSTIC 10.10 ng/mL High 0.0-4.0 [facility] Comment on above: Result Comment: This test was performed using the TPSA assay method for the Fabulyzer chemistry system. Values obtained with different assay methods cannot be used interchangably. When changing PSA assays in the course of monitoring a patient, additional sequential testing should be carried out to confirm baseline values. Performed By: #### L 501.9940, L500.4050, L500.4100, L100.0100 #### [facility] [address] [place], [address] Internal Medicine Office Vis [facility] 03-04-2024 Internal Medicine Office Visit [place] [facility] [place] [address] [place] [address] OFFICE VISIT Date of Service: 03/04/24 MR#: [id number] Acct: [id number] Name: MATHEUS GREENE . Rep #: [id number] : 1935 Provider: Dr. Moon hutchison MD Age/Sex: 88/M Location: [facility] Status: Signed Intake Vital Signs 05/02/23 11:26 02/29/24 13:46 03/04/24 08:41 Height 5 ft 5 in 5 ft 5 in 5 ft 5 in Weight: 156 lb 162 lb 161 lb BMI 25.9 26.9 26.8 BP 123/77 H 129/76 H 124/82 H Blood Pressure Location Lt brachial Lt brachial Lt brachial Position Sitting Sitting Sitting Respiration 16 16 17 Pulse 78 70 76 Pulse Source Auscultation Monitor Monitor Temp 97.7 F L Temp Source Temporal Pulse Oximetry (%) 98 Oxygen Delivery Method room air Intake Visit Reasons: YEARLY Chief Complaint: Yearly Is patient in pain?: No Allergies acetaminophen (From Percocet) Allergy (Intermediate, Verified 03/04/24 08:38) ALLERGY acetazolamide Allergy (Intermediate, Verified 03/04/24 08:38) ALLERGY hydrocodone (From Vicodin) Allergy (Intermediate, Verified 03/04/24 08:38) ALLERGY oxycodone (From Percocet) Allergy (Intermediate, Verified 03/04/24 08:38) ALLERGY Sulfa (Sulfonamide Antibiotics) Allergy (Intermediate, Verified 03/04/24 08:38) ALLERGY Medications ???Medication ???Instructions ???Recorded ???Confirmed ???Type ascorbic acid (vitamin C) 1,000 mg 1 g PO DAILY 05/01/19 03/04/24 History tablet aspirin 81 mg tablet,delayed 81 mg PO DAILY 05/01/19 03/04/24 History release (Adult Low Dose Aspirin) cholecalciferol (vitamin D3) 50 2,000 unit PO DAILY 05/01/19 03/04/24 History mcg (2,000 unit) capsule omega-3 360 mc-jdh-wie-fish oil 1 cap PO DAILY 05/01/19 03/04/24 History 1,200 mg capsule,delayed release (Fish Oil) brimonidine 0.1 % eye drops 2 drp ophthalmic (eye) BID 04/15/20 03/04/24 History (Alphagan P) carboxymethylcellulose 0.5 1 drp ophthalmic (eye) BID-QID PRN 06/03/20 03/04/24 History %-glycerin 0.9 % eye drops (Refresh Optive) dorzolamide 22.3 mg-timolol 6.8 1 drp ophthalmic (eye) QAM AND QPM 04/14/21 03/04/24 History mg/mL eye drops optive tears EACH EYE 02/22/23 03/04/24 History triamterene 37.5 1 tab PO DAILY #90 tabs 03/09/23 03/04/24 Rx mg-hydrochlorothiazide 25 mg tablet allopurinol 300 mg tablet 150 mg (1/2 x 300 mg) PO DAILY #60 04/28/23 03/04/24 Rx tabs latanoprost 0.005 % eye drops 1 drp ophthalmic (eye) QPM 05/02/23 03/04/24 History triamcinolone acetonide 0.1 % 1 applic topical DAILY PRN 05/02/23 03/04/24 History topical cream apixaban 5 mg tablet (Eliquis) 5 mg PO BID #180 tabs 02/29/24 03/04/24 Rx cyanocobalamin (vitamin B-12) 1,000 mcg subcut QWEEK 02/29/24 03/04/24 History 1,000 mcg/mL injection solution folic acid 800 mcg tablet 0.8 mg PO DAILY 02/29/24 03/04/24 History doxycycline monohydrate 100 mg 100 mg PO DAILY #90 caps 03/04/24 03/04/24 Rx capsule (Monodox) lisinopril 5 mg tablet 5 mg PO DAILY #90 tabs 03/04/24 03/04/24 Rx propranolol 60 mg tablet 60 mg PO QDAY #90 tabs 03/04/24 03/04/24 Rx simvastatin 10 mg tablet 10 mg PO QHS #90 tabs 03/04/24 03/04/24 Rx Nurse's Note: pt reports he will need RF on all of his medications [facility] Medical History (Updated 03/04/24 @ 17:[address] Moon Wells MD) Coronary artery disease Atrial fibrillation Hypertension Dyslipidemia Carotid artery disease Right knee pain Hypertrophic toenail Bilateral carotid artery stenosis Pure hypercholesterolemia Essential hypertension Longstanding persistent atrial fibrillation Atherosclerotic heart disease of [place] coronary artery without angina pectoris [facility] current use of anticoagulant Hearing aid worn High triglycerides History of skin cancer Neoplasm of skin of scalp Former smoker Actinic keratosis Vision problems Neuropathy Hearing problem Gout Glaucoma Cataracts, bilateral History of blood transfusion Back problem Arthritis Seasonal allergies Surgical History History of coronary artery bypass surgery ( 1982) History of hemorrhoidectomy Glaucoma, open angle History of colonoscopy History of excision of epidermal inclusion cyst History of vasectomy History of tonsillectomy History of right knee surgery Pilonidal cyst History of rotator cuff surgery History of phacoemulsification of cataract of both eyes with intraocular lens implantation History of heart artery stent ( 2003) Family History Daughter Depression Suicide Mother Heart disease Suicide Father CVA (cerebral vascular accident) Social History Smoking Status: Former smoker alcohol intake: cur (more content not included)... Normal [facility] Cardiology Visit Reporton Cardiology Visit Report [facility] [address] [place] [address] OFFICE VISIT Date of Service: 02/29/24 MR#: [id number] Acct: [id number] Name: MATHEUS GREENE Sr. Rep #: [id number] : 1935 Provider: Dr. Carlyn Saunders MD Age/Sex: 88/M Location: [facility] Status: Signed HPI HPI History of Present Illness Details: This pleasant gentleman is here for follow-up visit. During the , he follows with Dr. Anguiano in [place]. Denies any chest pains. No shortness of breath. No palpitations. No orthopnea. No PND. Occasional ankle edema. Intake Vital Signs 05/02/23 11:26 02/29/24 13:46 Height 5 ft 5 in 5 ft 5 in Weight: 156 lb 162 lb BMI 25.9 26.9 BP 123/77 H 129/76 H Blood Pressure Location Lt brachial Lt brachial Position Sitting Sitting Respiration 16 16 Pulse 78 70 Pulse Source Auscultation Monitor Intake Visit Reasons: 1 Y FU Enterprise Resource Analyst Required: No Accompanied by: Is patient in pain?: No Allergies acetaminophen (From Percocet) Allergy (Intermediate, Verified 02/29/24 13:47) ALLERGY acetazolamide Allergy (Intermediate, Verified 02/29/24 13:47) ALLERGY hydrocodone (From Vicodin) Allergy (Intermediate, Verified 02/29/24 13:47) ALLERGY oxycodone (From Percocet) Allergy (Intermediate, Verified 02/29/24 13:47) ALLERGY Sulfa (Sulfonamide Antibiotics) Allergy (Intermediate, Verified 02/29/24 13:47) ALLERGY Medications ???Medication ???Instructions ???Recorded ???Confirmed ???Type ascorbic acid (vitamin C) 1,000 mg 1 g PO DAILY 05/01/19 02/29/24 History tablet aspirin 81 mg tablet,delayed 81 mg PO DAILY 05/01/19 02/29/24 History release (Adult Low Dose Aspirin) cholecalciferol (vitamin D3) 50 2,000 unit PO DAILY 05/01/19 02/29/24 History mcg (2,000 unit) capsule omega-3 360 dt-pso-yuj-fish oil 1 cap PO DAILY 05/01/19 02/29/24 History 1,200 mg capsule,delayed release (Fish Oil) brimonidine 0.1 % eye drops 2 drp ophthalmic (eye) BID 04/15/20 02/29/24 History (Alphagan P) carboxymethylcellulose 0.5 1 drp ophthalmic (eye) BID-QID PRN 06/03/20 02/29/24 History %-glycerin 0.9 % eye drops (Refresh Optive) dorzolamide 22.3 mg-timolol 6.8 1 drp ophthalmic (eye) QAM AND QPM 04/14/21 02/29/24 History mg/mL eye drops optive tears EACH EYE 02/22/23 02/29/24 History apixaban 5 mg tablet (Eliquis) 5 mg PO BID #180 tabs 02/23/23 02/29/24 Rx propranolol 60 mg tablet 60 mg PO QDAY #90 tabs 03/09/23 02/29/24 Rx triamterene 37.5 1 tab PO DAILY #90 tabs 03/09/23 02/29/24 Rx mg-hydrochlorothiazide 25 mg tablet allopurinol 300 mg tablet 150 mg (1/2 x 300 mg) PO DAILY #60 04/28/23 02/29/24 Rx tabs doxycycline monohydrate 100 mg 100 mg PO DAILY #90 caps 04/28/23 02/29/24 Rx capsule (Monodox) lisinopril 5 mg tablet 5 mg PO DAILY #90 tabs 04/28/23 02/29/24 Rx latanoprost 0.005 % eye drops 1 drp ophthalmic (eye) QPM 05/02/23 02/29/24 History triamcinolone acetonide 0.1 % 1 applic topical DAILY PRN 05/02/23 02/29/24 History topical cream cyanocobalamin (vitamin B-12) 1,000 mcg subcut QWEEK 02/29/24 History 1,000 mcg/mL injection solution folic acid 800 mcg tablet 0.8 mg PO DAILY 02/29/24 02/29/24 History simvastatin 10 mg tablet 10 mg PO QHS 02/29/24 02/29/24 History Ejection fraction %: 53 PFSH Medical History Coronary artery disease Atrial fibrillation Hypertension Dyslipidemia Carotid artery disease Right knee pain Hypertrophic toenail Bilateral carotid artery stenosis Pure hypercholesterolemia Essential hypertension Longstanding persistent atrial fibrillation Atherosclerotic heart disease of [place] coronary artery without angina pectoris [facility] current use of anticoagulant Hearing aid worn High triglycerides History of skin cancer Neoplasm of skin of scalp Former smoker Actinic keratosis Vision problems Neuropathy Hearing problem Gout Glaucoma Cataracts, bilateral History of blood transfusion Back problem Arthritis Seasonal allergies Surgical History History of coronary artery bypass surgery ( 1982) History of hemorrhoidectomy Glaucoma, open angle History of colonoscopy History of excision of epidermal inclusion cyst History of vasectomy History of tonsillectomy History of right knee surgery Pilonidal cyst History of rotator cuff surgery History of phacoemulsification of cataract of both eyes with intraocular lens implantation History of heart artery stent ( 2003) Family History Daughter Depression Suicide Mother Heart disease Suicide Father CVA (cerebral vascular accident) Social History (more content not included)... Normal [facility] Cardiology Visit Reporton Cardiology Visit Report [facility] [address] [place] [address] OFFICE VISIT Date of Service: 05/02/23 MR#: [id number] Acct: [id number] Name: JCMATHEUSVANNA LOPEZ . Rep #: [id number] : 1935 Provider: Dr. Carlyn Saunders MD Age/Sex: 87/M Location: [facility] Status: Signed [facility] History of Present Illness Details: This gentleman is a previous Dr. Loera patient. He also follows with cardiology in [place], where he lives part of the year. He follows with Dr. Anguiano there.. Previous history of coronary artery disease status post CABG. Also history of percutaneous intervention. Patient also has history of permanent atrial fibrillation, hypertension, dyslipidemia and carotid artery disease. Today denies any new complaints. No chest pain. Chronic shortness of breath with moderate to strenuous exertion. No orthopnea. No PND. According to him, his lower extremity edema is much better. Denies any palpitations. No lightheadedness or dizziness. No syncope or presyncope. Intake Vital Signs 03/22/23 08:07 05/02/23 11:26 Height 5 ft 5 in 5 ft 5 in Weight: 163 lb 156 lb BMI 27.1 25.9 BP 136/84 H 123/77 H Blood Pressure Location Rt brachial Lt brachial Position Sitting Sitting Respiration 18 16 Pulse 80 78 Pulse Source Monitor Auscultation Temp 95.0 F L Pulse Oximetry (%) 97 Oxygen Delivery Method room air Intake Visit Reasons: OVERDUE FOR FU / PREV PFM PT Enterprise Resource Analyst Required: No Accompanied by: Self Is patient in pain?: No Allergies acetaminophen [From Percocet] Allergy (Intermediate, Verified 05/02/23 11:27) ALLERGY acetazolamide Allergy (Intermediate, Verified 05/02/23 11:27) ALLERGY hydrocodone [From Vicodin] Allergy (Intermediate, Verified 05/02/23 11:27) ALLERGY oxycodone [From Percocet] Allergy (Intermediate, Verified 05/02/23 11:27) ALLERGY Sulfa (Sulfonamide Antibiotics) Allergy (Intermediate, Verified 05/02/23 11:27) ALLERGY Medications ascorbic acid (vitamin C) 1,000 mg tablet 1 g PO DAILY 05/01/19 [History Confirmed 05/02/23] aspirin 81 mg tablet,delayed release (Adult Low Dose Aspirin) 81 mg PO DAILY 05/01/19 [History Confirmed 05/02/23] cholecalciferol (vitamin D3) 50 mcg (2,000 unit) capsule 2,000 unit PO DAILY 05/01/19 [History Confirmed 05/02/23] omega-3 360 vh-jxe-rns-fish oil 1,200 mg capsule,delayed release (Fish Oil) 1 cap PO DAILY 05/01/19 [History Confirmed 05/02/23] cyanocobalamin (vitamin B-12) 1,000 mcg/mL injection solution 1,000 mcg subcut QMONTH 04/02/20 [History Confirmed 05/02/23] brimonidine 0.1 % eye drops (Alphagan P) 2 drp ophthalmic (eye) BID 04/15/20 [History Confirmed 05/02/23] carboxymethylcellulose 0.5 %-glycerin 0.9 % eye drops (Refresh Optive) 1 drp ophthalmic (eye) BID- QID PRN 06/03/20 [History Confirmed 05/01/23] dorzolamide 22.3 mg-timolol 6.8 mg/mL eye drops 1 drp ophthalmic (eye) QAM AND QPM 04/14/21 [History Confirmed 05/02/23] optive tears EACH EYE 02/22/23 [History Confirmed 05/02/23] apixaban 5 mg tablet (Eliquis) 5 mg PO BID #180 tabs 02/23/23 [Rx Confirmed 05/02/23] propranolol 60 mg tablet 60 mg PO QDAY #90 tabs 03/09/23 [Rx Confirmed 05/02/23] triamterene 37.5 mg-hydrochlorothiazide 25 mg tablet 1 tab PO DAILY #90 tabs 03/09/23 [Rx Confirmed 05/02/23] allopurinol 300 mg tablet 150 mg (1/2 x 300 mg) PO DAILY #60 tabs 04/28/23 [Rx Confirmed 05/02/23] doxycycline monohydrate 100 mg capsule (Monodox) 100 mg PO DAILY #90 caps 04/28/23 [Rx Confirmed 05/02/23] lisinopril 5 mg tablet 5 mg PO DAILY #90 tabs 04/28/23 [Rx Confirmed 05/02/23] terbinafine HCl 250 mg tablet 250 mg PO DAILY 05/01/23 [History Confirmed 05/02/23] latanoprost 0.005 % eye drops 1 drp ophthalmic (eye) QPM 05/02/23 [History Confirmed 05/02/23] triamcinolone acetonide 0.1 % topical cream 1 applic topical DAILY PRN 05/02/23 [History Confirmed 05/01/23] Ejection fraction %: 60 to 64 PFSH Medical History Actinic keratosis Arthritis Atherosclerotic heart disease of [place] coronary artery without angina pectoris Back problem Bilateral carotid artery stenosis Cataracts, bilateral Essential hypertension Former smoker Glaucoma Gout Hearing aid worn Hearing problem High triglycerides History of blood transfusion History of skin cancer Hypertrophic toenail [facility] current use of anticoagulant Longstanding persistent atrial fibrillation Neoplasm of skin of scalp Neuropathy Pure hypercholesterolemia Right knee pain Seasonal allergies Vision problems Surgical History Glaucoma, open angle History of colonoscopy History of coronary artery bypass surgery ( 1982) History of excision of epidermal inclusion cyst History of heart artery stent ( 2003) History of hem (more content not included)... Normal [facility] Absolute lymphocyte countOrd ered By: Cecily Elizabeth on 03-04-2023 Lymphocytes Auto (Unsp spec) [#/Vol] 0.27 10*3/uL 0.83-4.51 [facility] Basophil percentageOrdered B y: Dr. Mcguire on 03-04-2023 Basophil percentage 0 SEEN /hpf 0-5 [facility] Basophil percentageOrdered B y: Cecily Elizabeth on 03-04-2023 Basophils/100 WBC (Bld) 0.1 % 0-1 [facility] Chloride [Moles/Vol] 109 mmol/L 98-107 [facility] Eosinophils/100 WBC (Bld) 0.1 % 0-5 [facility] Glucose [Mass/Vol] 152 mg/dL 74-106 [facility] Comment on above: Fasting Glucose resu lt greater than or equal to 126 mg/dL suggests DIABETES MELLITUS per A.D.A. criteria. Neutrophils (Bld) [#/Vol] 16.1 10*3/uL 2.0-7.7 [facility] Neutrophils/100 WBC (Bld) 92.3 % 47-70 [facility] Potassium [Moles/Vol] 4.0 mmol/L 3.5-5.1 [facility] Sodium [Moles/Vol] 139 mmol/L 136-145 [facility] WBC (Bld) [#/Vol] 17.5 10*3/uL 4.4-11.0 [facility] Bilirubin Test strip Ql (U)O rdered By: Dr. Mcguire on 03-04-2023 Bilirubin Ql (U) Negative Negative [facility] Blood erythrocytes count (nu mber/volume)Ordered By: Cecily Elizabeth on 03-04-2023 RBC (Bld) [#/Vol] 4.31 10*6/uL 4.6-6.2 [facility] Blood hemoglobin measurement (mass/volume)Ordered By: Cecily Elizabeth on 03-04-2023 Hemoglobin (Bld) [Mass/Vol] 13.6 g/dL 13.0-16.5 [facility] Blood lymphocytes/100 leukoc ytesOrdered By: Cecily Elizabeth on 03-04-2023 Lymphocytes/100 WBC (Bld) 1.5 % 19-41 [facility] Blood monocytes/100 leukocyt esOrdered By: Cecily Elizabeth on 03-04-2023 Monocytes/100 WBC (Bld) 5.1 % 0-10 [facility] Blood platelet adequacy dete ction by light microscopyOrdered By: Cecily Elizabeth on 03-04-2023 Platelets LM Ql (Bld) SLT DEC [facility] Blood platelet mean volumeOr dered By: Cecily Elizabeth on 03-04-2023 Platelet mean volume (Bld) [Entitic vol] 10.8 fL 6.2-12.0 [facility] Determination of erythrocyte mean corpuscular volume (MCV)Ordered By: Cecily Elizabeth on 03-04-2023 MCV (RBC) [Entitic vol] 95.1 fL 80-94 [facility] Hematocrit Auto (Bld) [Volum e fraction]Ordered By: Cecily Elizabeth on 03-04-2023 Hematocrit (Bld) [Volume fraction] 41.0 % 40-54 [facility] Ketones Test strip Ql (U)Ord ered By: Dr. Mcguire on 03-04-2023 Ketones Ql (U) Negative Negative [facility] Laboratory - Chemistry and C hemistry - challengeOrdered By: Cecily Elizabeth on 03-04-2023 CO2 [Moles/Vol] 22.0 mmol/L 21.0-32.0 [facility] Urea nitrogen/Creatinine [Mass ratio] 21.2 mg/mg 10-20 [facility] - Hematology and Cell countsOrdered By: Cecily Elizabeth on 03-04-2023 Erythrocyte distribution width (RBC) [Entitic vol] 50.9 fL 35.1-43.9 [facility] Erythrocyte distribution width (RBC) [Ratio] 14.6 % 11.6-14.6 [facility] Immature granulocytes/100 WBC (Bld) 0.900 % 0.0-0.9 [facility] Comment on above: IG% - Immature Granu locytes (promyelocytes, myelocytes and metamyelocytes) > 1% indicates that a LEFT SHIFT is Present. MCH (RBC) [Entitic mass] 31.6 pg 27.0-32.0 [facility] Nucleated RBC/100 WBC (Bld) [Ratio] 0 % 0-5 [facility] MCHC Auto (RBC) [Mass/Vol]Or dered By: Cecily Elizabeth on 03-04-2023 MCHC (RBC) [Mass/Vol] 33.2 g/dL 32-36 [facility] Mucus LM Ql (Urine sed)Order ed By: Dr. Mcguire on 03-04-2023 Mucus Ql (Urine sed) 0 SEEN /hpf [facility] Nitrite Test strip Ql (U)Ord ered By: Dr. Mcguire on 03-04-2023 Nitrite Ql (U) Negative Negative [facility] No Panel InformationOrdered By: Cecily Elizabeth on 03-04-2023 Troponin I High Sensitivity 10 pg/mL 3.0-78.0 [facility] Comment on above: Please Note: New Shobha t Units and Gender Specific Reference Ranges. For more information see Policy Stat Procedure [place] High Sensitivity Troponin (TNIH) and attachments. Estimated Creatinine Clearance Calc 31.59 ml/min [facility] Estimated GFR (MDRD) Amer 59 mL/min >60 [facility] Comment on above: GFR Calc Estimated GFR (MDRD) Non-Af Amer 49 mL/min >60 [facility] Comment on above: Non- GFR Calc Platelets bldOrdered By: Sunny Elizabteh on 03-04-2023 Platelets (Bld) [#/Vol] 88 10*3/uL 150-450 [facility] Protein Test strip Ql (U)Ord ered By: Dr. Mcguire on 03-04-2023 Protein Ql (U) 15 mg/dl Negative [facility] Serum or plasma calcium nabor urement (mass/volume)Ordered By: Cecily Elizabeth on 03-04-2023 Calcium [Mass/Vol] 9.9 mg/dL 8.5-10.1 [facility] Serum or plasma creatinine m easurement (mass/volume)Ordered By: Cecily Elizabeth on 03-04-2023 Creatinine [Mass/Vol] 1.46 mg/dL 0.70-1.30 [facility] Comment on above: The validity of the calculated GFR & GFRAA in patients over 70 years has not been determined. Clinical correlation is essential. Serum or plasma urea nitroge n measurement (mass/volume)Ordered By: Cecily Elizabeth on 03-04-2023 Urea nitrogen [Mass/Vol] 31 mg/dL 7-18 [facility] Squamous epithelial cells de tection in urine sediment by light microscopyOrdered By: Dr. Mcguire on 03-04-2023 Epithelial cells.squamous LM Ql (Urine sed) 0 SEEN /hpf 0-5 [facility] Thin prep Papanicolaou smear with manual screeningOrdered By: Cecily Elizabeth on 03-04-2023 Thin prep Papanicolaou smear with manual screening 8 5-15 [facility] Urine blood detectionOrdered By: Dr. Mcguire on 03-04-2023 RBC Ql (U) Negative Negative [facility] RBC Ql (U) 0 SEEN /hpf 0-5 [facility] Urine clarityOrdered By: Dr. Mcguire on 03-04-2023 Clarity (U) Clear Clear [facility] Urine color determinationOrd ered By: Dr. Mcguire on 03-04-2023 Color (U) Yellow Yellow [facility] Urine glucose detectionOrder ed By: Dr. Mcguire on 03-04-2023 Glucose Ql (U) Normal mg/dl Normal [facility] Urine leukocyte esterase det ection by dipstickOrdered By: Dr. Mcguire on 03-04-2023 Leukocyte esterase Test strip Ql (U) Negative Negative [facility] Urine pHOrdered By: Dr. Teo cristina on 03-04-2023 pH (U) 5.0 [pH] 5.0 - 8.0 [facility] Urine sediment bacteria coun t by microscopy (number/high power field)Ordered By: Dr. Mcguire on 03-04-2023 Bacteria LM.HPF (Urine sed) [#/Area] 0 /[HPF] None Seen [facility] Urine specific gravity measu rementOrdered By: Dr. Mcguire on 03-04-2023 Specific gravity (U) [Rel density] 1.015 1.002-1.030 [facility] Urobilinogen Auto test strip Ql (U)Ordered By: Dr. Mcguire on 03-04-2023 Urobilinogen Ql (U) Normal mg/dl Normal [facility] Vital Signs Date Time Vital Sign Value Performing Clinician Faci lity 03-05-2025 09:00-0400 Body height 167.[address] Moon Wells MD Work Phone: [facility] 03-05-2025 09:00-0400 Body mass index (BMI) [Ratio] 25.7 kg/m2 Dr. Moon Wells MD Work Phone: [facility] 03-05-2025 09:00-0400 Body temperature 97.8 [degF] Dr. Moon Wells MD Work Phone: [facility] 03-05-2025 09:00-0400 Body weight 72.[address] Moon Wells MD Work Phone: [facility] 03-05-2025 09:00-0400 Diastolic blood pressure 90 mm[Hg] Dr. Moon Wells MD Work Phone: [facility] 03-05-2025 09:00-0400 Heart rate 95 /min Dr. Moon Wells MD Work Phone: [facility] 03-05-2025 09:00-0400 Respiratory rate 18 /min Dr. Moon Wells MD Work Phone: [facility] 03-05-2025 09:00-0400 SaO2% (BldA) [Mass fraction] 94 % Dr. Moon Wells MD Work Phone: [facility] 03-05-2025 09:00-0400 Systolic blood pressure 144 mm[Hg] Dr. Moon Wells MD Work Phone: [facility] 03-04-2023 15:07-0400 Diastolic blood pressure 68 mm[Hg] Dr. Moon Wells Work Phone: [facility] 03-04-2023 15:07-0400 Heart rate 63 /min Dr. Moon Wells Work Phone: [facility] 03-04-2023 15:07-0400 Respiratory rate 14 /min Dr. Moon Wells Work Phone: [facility] 03-04-2023 15:07-0400 SaO2% (BldA) [Mass fraction] 98 % Dr. Moon Wells Work Phone: [facility] 03-04-2023 15:07-0400 Systolic blood pressure 118 mm[Hg] Dr. Moon Wells Work Phone: [facility] 03-04-2023 11:20-0400 Body height 165.[address] Moon Wells Work Phone: [facility] 03-04-2023 11:20-0400 Body mass index (BMI) [Ratio] 25.7 kg/m2 Dr. Moon Wells Work Phone: [facility] 03-04-2023 11:20-0400 Body temperature 98.1 [degF] Dr. Moon Wells Work Phone: [facility] 03-04-2023 11:20-0400 Body weight 70.[address] Moon Wells Work Phone: [facility] 02-22-2023 15:36-0400 Body mass index (BMI) [Ratio] 26.2 kg/m2 Dr. Moon Wells Work Phone: [facility] 02-22-2023 15:36-0400 Body temperature 97.2 [degF] Dr. Moon Wells Work Phone: [facility] 02-22-2023 15:36-0400 Body weight 71.[address] Moon Wells Work Phone: [facility] 02-22-2023 15:36-0400 Diastolic blood pressure 84 mm[Hg] Dr. Moon Wells Work Phone: [facility] 02-22-2023 15:36-0400 Heart rate 72 /min Dr. Moon Wells Work Phone: [facility] 02-22-2023 15:36-0400 Respiratory rate 14 /min Dr. Moon Wells Work Phone: [facility] 02-22-2023 15:36-0400 SaO2% (BldA) [Mass fraction] 98 % Dr. Moon Wells Work Phone: [facility] 02-22-2023 15:36-0400 Systolic blood pressure 126 mm[Hg] Dr. Moon Wells Work Phone: [facility] Encounters Encounter Date Encounter Type Care Provider Facility Start: 03-05-2025 End: 03-05-[address] Moon Wells MD Work Phone: [facility] Work Phone: Start: 03-05-2025 End: 03-05-[address] Moon Wells MD -[facility] Work Phone: Start: 03-29-2024 End: 03-29-2024 ambulatory Moon Wells Facility:[facility] Start: 03-22-2024 End: 03-22-2024 ambulatory Moon Wells Facility:[facility] Start: 03-04-2024 End: 03-04-2024 ambulatory Moon Wells Facility:[facility] Start: 02-29-2024 End: 02-29-2024 ambulatory Moon Wells Facility:[facility] Start: 05-02-2023 End: 05-02-2023 ambulatory Moon Wells Facility:[facility] Start: 03-04-2023 End: 03-04-2023 Emergency department patient visit Dr. Moon Wells Work Phone: [facility]-Emergency Department Start: 02-22-2023 End: 02-22-[address] Moon Wells Work Phone: [facility] Procedures Date Procedure Procedure Detail Performing Clinician Start: 03-04-2023 Computed tomography of abdomen and pelvis with intravenous contrast Dr. Moon Wells Work Phone: Start: 03-04-2023 Plain chest X-ray Dr. Dolly Wells Work Phone: History of coronary artery bypass grafting History of coronary artery bypass surgery Dr. Moon Wells Work Phone: Comment on above: 1982 History of placement of stent for coronary artery disease History of heart artery stent Dr. Moon Wells Work Phone: Comment on above: x3 in 1998; and x2 i n 2003 Plan of Treatment Date Care Activity Detail Author Start: 03-05-2025 Patient referral [facility] Work Phone: Start: 02-22-2023 Patient referral [facility] Work Phone: Patient Education High Blood Sug ar (Hyperglycemia) [facility] Work Phone: Patient referral [facility] Work Phone: XR Cervical spine 2 or 3 Views [facility] XR Lumbar spine 2 or 3 Views [facility] Immunizations Immunization Date Immunization Notes Care Provider Steph rocha 05-20-2015 zoster vaccine, live Dr. Feliz Wells MD Work Phone: [facility] Payers Date Payer Category Payer Unknown [id number] 2023 Self-pay [id number] Medicare MEDICARE PART A B [id number] [address] [facility] [id number] Unknown [id number] [id number] Unknown [id number] [id number] [id number] Unknown [id number] [id number] [id number] Unknown [id number] [id number] Unknown [id number] [id number] [id number] Social History Date Type Detail Facility Start: 03-04-2023 Tobacco smoking stat [facility] Unknown if ever smoked [facility] Start: 05-10-2019 Non-smoker [facility] Start: 1935 Sex Assigned At Male [facility] Start: 04-12-2024 [facility] Mental Status Date Assessment Result Facility 03-04-2023 Cognitive function Level Of Cons ciousness Awake;Alert;Appropriate;Follow s Commands [facility] Work Phone: Evaluation note Note Date & Type Note Facility Evaluation note Diagnosis Onset Date Hypertrophic toenail acute Right knee pain chronic [facility] Work Phone: Evaluation note Note Date & Type Note Facility Evaluation note No assessment information availa [facility] Work Phone: Hospital Discharge instructions Note Date & Type Note Facility Hospital Discharge instructions Additional Instructions Please follow-up with your PCP and return for any worsening of symptoms. [facility] Work Phone: Hospital Discharge instructions Note Date & Type Note Facility Hospital Discharge instructions Ambulatory OrdersPT Referral Location: None Selected [facility] Work Phone: Chief Complaint and Reason for Visit Chief Complaint rt knee issues ABD PAIN Reason for Visit Hypertrophic toenail Right knee pain Chief Complaint Admit Date YEARLY March 05, 2025 8:54 am Family History Relationship Condition Age at Onset Recorded Date/T marcin daughter Depression Unknown Suicide Unknown sister Depression Unknown mother Cardiac disease Unknown father Cerebrovascular accident (CVA) Unknown Relationship Condition Age at Onset Recorded Date/T marcin daughter Depression Unknown Suicide Unknown mother Cardiac disease Unknown father Cerebrovascular accident (CVA) Unknown Advance Directives Advance Directive Response Recorded Date/ Time Living Will No March 04, 2023 12:30pm Power of Hot Shot No March 04 12:30pm Advance Directive Response Recorded Date/ Time Living Will No March 04, 2023 12:30pm Do you have a Healthcare Power of Hot Shot? No March 04, 2023 12:30pm Summary Purpose Additional Source Comments Care Teams (unrecognized sec tion and content) Team Status: Active Member Role Status Dates Dr. Vikram Cleveland DO Family Provider Active Dr. Moon Wells MD Primary Care Provider Active Team Status: Inactive Member Role Status Dates Dr. Moon Wells MD Primary Care Provider, Refer ring Provider Active Vikram Meyer PHARMACOLOGIST, PHARMACOLOGIST-C Attending Provider Active Team Status: Inactive Member Role Status Dates Dr. Moon Wells MD Primary Care Provider Active Dr. Tj Mcguire DO Emergency Provider Active Team Status: Inactive Member Role Status Dates Dr. Moon Wells MD Primary Care Provider Active Start: March 05, 2025 End: March 05, 2025 Dr. Moon Wells MD Attending Provider Active Start: March 05, 2025 End: March 05, 2025 Dr. Moon Wells MD Referring Provider Active Start: March 05, 2025 End: March 05, 2025 Goals (unrecognized section and content) Goals may be documented in a n alternate sectionGoals may be documented in an alternate section (unrecognized sect ion and content) No Status Records Found INFORMATION SOURCE (unrecogn ized section and content) DATE CREATED AUTHOR 04/04/2024 [facility] FOR RECORDS PERTAINING TO PATIENTS WHO ARE OR HAVE BEEN ENROLLED IN A CHEMICAL DEPENDENCY/SUBSTANCEABUSE PROGRAM, SOME INFORMATION MAY BE OMITTED. This clinical summary was aggregated from multiple sources. Caution should be exercised in using it in the provision of clinical care. This summary normalizes information from multiple sources, and as a consequence, information in this document may materially change the coding, format and clinical context of patient data. In addition, data may be omitted in some cases. CLINICAL DECISIONS SHOULD BE BASED ON THE PRIMARY CLINICAL RECORDS. [facility]. provides no warranty or guarantee of the accuracy or completeness of information in this document.
== END | disposition home or self-care (01) ==
LOC: MTRAD 09:56
PROVIDERS: PCP Internal Medicine; Referring Provider Internal Medicine; Visit Provider Internal Medicine
DX: M54.12 Radiculopathy, cervical region (principal); M54.16 Radiculopathy, lumbar region
CPT/HCPCS: 72040; 72100

== ENCOUNTER 2025-04-02 08:30 | Outpatient (RCR) | payer MEDICARE, SELFPAY ==
--- NOTE | 2025-03-12 11:00 | HP.PTEVAL_ITS ---
Patient's Visit Information Visit Information Visit Information: MATHEUS GREENE Sr. is a 89 year old M referred to Physical Therapy by Dr. Moon Wells MD with a diagnosis of Lumbar radiculopathy. Date of Evaluation: 03/12/25 Physical Therapist: Darci Meadows, PT, ATC Visit Plan Frequency: 2x /Week Duration: 4 Weeks Plan: SKTC/DKTC, core stab ex's, B LE strengthening, balance and proprio, nustep, and HEP Subjective Subjective: Pt reports he has had LBP intermittently for several years. Pt notes she is unable to ambulate very far at this time secondary to R LE radiculopathy that occurs. Pt notes this also limits his ability to perform other house chores such as washing dishes secondary to LBP. Pt notes he had x-rays which reveled DDD at this time. Pt notes he has had to use a cane recently secondary to a couple falls that he has experienced. Pt notes he has banged his head from a fall which is the one time he was really hurt. Pt reports he can feel his feet hitting the ground, but notes on occasion his toes will become numb on him. 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 Pt is I with his IADLs' and ADLs. Pt reports he has no pain while sitting here at rest right now, but notes his pain increases to 7/10 at worst. Pain LBP: Pain Intensity (Out of 10): 0 Pain Intensity Range: 7 Objective Objective: TU sec Neuro: B LE sensation is WNL to light touch. MMT: B LE's are generally weak rated at 4/5 throughout ROM: Pt is moderately limited with flexion of the lumbar spine. Pt is severely limited with extension and B sidebend. repeated movements: SKTC/DKTC 10 sec x3 ea decreased pain Balance/Special Test Scores Oswestry Neck Score: 17 Goals Goal 1:: Decrease LBP x 50% to aid with ambulation Goal Time Frame: 4-6 Weeks Goal 2:: Decrease the frequency and intensity of R LE radiculopathy x 50% to aid with ambulation Goal Time Frame: 4-6 Weeks Goal 3:: I with HEP Goal Time Frame: 4-6 Weeks Goal 4:: Perform TUG in under 15 seconds to aid with efficient ambulation Goal Time Frame: 4-6 Weeks Rehabilitation Potential Physical Therapy Diagnosis: Pt has LBP, R LE radiculopathy, and difficulty with ambulation secondary to DDD Rehabilitation Potential: Good Anticipated Interventions Patient/Client Instruction: Educate patient on: Condition and Plan of Care For the Purpose of:: To improve self management Therapeutic Exercise to Include: Strength training, Endurance training, Balance training, Body mechanics, Postural training, Active ROM and Dynamic Lumbar Stabilization For the Purpose of:: To decrease pain, To improve muscle performance and motor function and To increase tolerance to activity/condition/position Text: Thank you for the opportunity to evaluate your patient. For Medicare and Medicare HMO plans, please review the plan of care and approve it. It will need to be FAXED BACK to us at [phone] for Medicare purposes. For Medicare only, by signing this I certify the plan of care. Please let me know if there are questions or concerns regarding this plan of care. Physician Signature:____ Date:
--- NOTE | 2025-04-02 09:21 | HP.PTDCSUM ---
Discharge Summary D/C summary: It has been my pleasure to treat MATHEUS GREENE Sr. referred by Dr. Moon Wells MD, with the diagnosis of Lumbar radiculopathy for a total of 7 visit(s). Discharge Date: Please see the following information for a summary of their discharge status. Subjective Subjective: Pt reports his LBP is not any better. Pain LBP: Pain Intensity (Out of 10): 6 Overall Improvement % Improvement: 5 Objective Objective/Function: No change in pain TUG 14 sec R LE radiculopathy has remained unchanged Pt is I with HEP Goals Goal 1:: Decrease LBP x 50% to aid with ambulation Goal Progress: Not Progressing Goal 2:: Decrease the frequency and intensity of R LE radiculopathy x 50% to aid with ambulation Goal 3:: I with HEP Goal Progress: Goal Met Goal 4:: Perform TUG in under 15 seconds to aid with efficient ambulation Goal Progress: Goal Met Plan Plan: Discontinue at this time secondary to lack of progress. RTD D/C Information d/c sentence: If there are questions or concerns regarding this patient's physical therapy, please feel free to call me at [phone]. Thank you for the referral of this patient. Sincerely, Darci Meadows, PT, ATC Balance/Gait/Functional tests Balance/Special Test Scores Oswestry Neck Score: 17 Improvement % Improvement: 5
== END 2025-04-02 19:00 | disposition home or self-care (01) ==
LOC: PT 08:30
PROVIDERS: PCP Internal Medicine; Referring Provider Internal Medicine; Visit Provider Internal Medicine
DX: M54.12 Radiculopathy, cervical region (principal); M54.16 Radiculopathy, lumbar region
CPT/HCPCS: 97110; 97161; 97530